=== PATIENT | female | born 1950 | race Caucasian/White ===

== ENCOUNTER 2017-07-15 11:08 | Inpatient (IN) ==
[2017-07-15] MEDS ORDERED: SODIUM CHLORIDE 0.9% 1,000 ML IV STA (11:25)
[2017-07-15] MEDS ORDERED: CLINDAMYCIN INJ 600 MG in PREMIX 1 EACH IV STA (11:25)
[2017-07-15] MEDS ORDERED: methylPREDNISolone SOD SUC 125 MG/2 ML VIAL IV STA (11:25)
[2017-07-15] MEDS ORDERED: LEVOFLOXACIN INJ 500 MG in PREMIX 1 EACH IV STA (11:25)
[2017-07-15] MEDS ORDERED: SUCCINYLCHOLINE 200 MG/10 ML VIAL IV ONE (11:26)
[2017-07-15] MEDS ORDERED: ETOMIDATE 20 MG/10 ML VIAL IV ONE ×2 (11:26→13:14)
[2017-07-15] MEDS ORDERED: MIDAZOLAM 2 MG/2 ML VIAL IV ONE (11:26)
--- NOTE | 2017-07-15 11:33 | Emergency Department Note ---
Arrival - Arrival Chief Complaint: Shortness of Breath ED Nursing Triage Note: pt to er 02 via ems coming from [facility], with c/o aspiration, pt was drinking grape juice and began to choke and turned blue around the lips. pt 02 sat on nonrebreather per ems was 50 % and then by bag ventilation per ems was 84%. Mode of Arrival: Stretcher Source: Patient, RN Notes Reviewed Time Seen by Provider: 07/15/17 11:25 - History of Present Illness HPI Narrative: Patient is a 67-year-old black female resident of [facility] who is brought to the emergency department by EMS in respiratory distress. The patient apparently aspirated grape juice at the longterm. Patient was noted to have a sat in the 50s upon arrival of EMS. Patient was not intubated in the field. The patient had pulse blood pressure and was being Ambu bagged upon arrival in the emergency department. History is obtained from EMS and was very limited as the patient was unable to provide any history. Allergies/Adverse Reactions: Allergies Allergy/AdvReac Type Severity Reaction Status Date / Time Penicillins Allergy Unknown/Unable Verified 07/15/17 11:16 to obtain tomato Allergy Unknown/Unable Verified 07/15/17 11:16 to obtain Home Medications: Home Medications Medication Instructions Recorded Confirmed Type Albuterol Sulfate [Albuterol Neb] 0.63 mg RESP TX DIRECTED 12/08/15 07/22/16 History Aspirin [Ecotrin] 81 mg PO DAILY 12/08/15 07/22/16 History Docusate Sodium Cap [Colace Cap] 100 mg PO DAILY 12/08/15 07/22/16 History Ferrous Sulfate 325 mg PO DAILY 12/08/15 07/22/16 History Insulin Glargine [Lantus] 40 unit SUBCUT DAILY 12/08/15 07/22/16 History Isosorbide Dinitrate 10 mg PO DAILY 12/08/15 07/22/16 History Metoprolol Tartrate 25 mg PO BID 12/08/15 07/22/16 History Montelukast Tab [Singulair Tab] 10 mg PO DAILY 12/08/15 07/22/16 History Olopatadine 0.1% Oph Soln [Patanol 1 drop BOTH EYES BID 12/08/15 07/22/16 History 0.1% Oph Soln] Omeprazole [Prilosec] 20 mg PO DAILY 12/08/15 07/22/16 History Furosemide Tab [Lasix Tab] 20 mg PO DAILY 12/11/15 07/24/16 History Insulin NPH Hum/Reg Insulin Hm 18 unit SUBCUT QAM 12/11/15 07/22/16 History [NovoLIN 70/30] Multivitamin [Multivitamins] 1 each PO DAILY 12/11/15 07/22/16 History traMADol TAB [Ultram] 50 mg PO BID 12/11/15 07/24/16 History Fenofibrate [Tricor] 145 mg PO DAILY 07/24/16 07/24/16 History Review of System - Review of System ROS unobtainable: due to endotracheal tube Medical,Surgical,& Family Hx - Medical History Cardio: History of: Hypertension Psychological: History of: Schizophrenia Neurology: History of: Cerebrovascular Accident Endocrine: History of: Diabetes Mellitus (IDDM), Diabetes Mellitus (NIDDM), Dyslipidemia Respiratory: History of: Asthma Genitourinary: History of: Bladder Problem (NEUROGENIC BLADDER) Gastrointestinal: History of: GERD, GI Problems (ADKINS'S ESOPHAGUS) - Surgical History Cardiac Surgeries: Patient Denies: Cardiac Catheterization - Social History Smoking Status: Smoker, status unknown Frequency of Alcohol Use: Unknown Type of Drug Use: Unknown Exam Vital Signs: Vital Signs Temperature 97.5 F L 07/15/17 11:08 Pulse Rate 111 H 07/15/17 11:08 Respiratory Rate 12 07/15/17 11:19 Blood Pressure 160/83 07/15/17 11:08 O2 Sat by Pulse Oximetry 84 L 07/15/17 11:08 GENERAL: This is a acutely ill-appearing morbidly obese black female in no apparent distress. VITAL SIGNS: Reviewed HEENT: Head is atraumatic and normocephalic. Pupils are equal round react to light. Extraocular movements are intact. Oropharynx is benign with moist mucous membranes. NECK: Neck is soft and supple without tenderness. There are no masses. There is no lymphadenopathy. LUNGS: Lungs are clear to auscultation. Chest rises symmetrically. There is no chest wall tenderness. CV: Heart is regular rate and rhythm without murmurs rubs or gallops. ABDOMEN: Abdomen is soft, nontender to palpation. There are no abdominal abnormal masses palpated. There is no organomegaly. Bowel sounds are present and active. SKIN: Skin is warm and dry. No rash. EXTREMITIES: Patient has full range of motion without tenderness. There is no pedal edema. NEUROLOGIC: Obtunded. Procedures - Intubation Time out performed: No sedative: Etomidate Mg Given: 20 paralytic: Succinylcholine Mg Given: 100 Laryngoscope: fiber optic video scope ET Tube Size: 7.5 ET Tube Uncuffed: No Tube Secured Depth (cm): 21 Tube Secured Location: teeth Tube Placement Confirmation: visualized tube passing through cords, equal breath sounds bilaterally, no breath sounds over epigastrium, confirmation detector color change Patient Tolerated Procedure: well Intubation Complications: difficult intubation Results - Labs Lab Results: I have reviewed the patients labs - EKG EKG results: interpreted by ERMD - Diagnostic Findings Procedure: Chest x-ray: image reviewed by me (Endotracheal tube in position above the maame. Increased pulmonary markings bilaterally right greater than left. This is consistent with aspiration pneumonia.) Disposition Clinical Impression: Aspiration pneumonia, Acute respiratory failure Case discussed with: patient's family Disposition: Still a Patient
[2017-07-15 11:37] LABS: Basophils % 0.4 % (0.0-0.8); Eosinophils # 0.3 10*3/uL (0.0-0.87); Eosinophils % 2.8 % (0.00-10.9); Hematocrit 36.5 VOL% (35.7-47.0); Hemoglobin 11.9 GM/DL (12.0-16.0); Immature Granulocytes % 0.7 %; Immature Granulocytes Absolute 0.07 #; Lymphocytes # 4.5 10*3/uL (1.4-4.0); Lymphocytes % 47.3 % (21.3-54.2); Mean Corpuscular HGB Conc 32.6 GM/DL (32-36); Mean Corpuscular Hemoglobin 27 PG (27-34); Mean Corpuscular Volume 82.6 FL (87-102); Mean Platelet Volume 11.2 FL (9.6-12.0); Monocytes # 0.9 10*3/uL (0.11-0.8); Neutrophils # 3.8 10*3/uL (1.4-7.4); Neutrophils % 39.8 % (38.7-73.9); Platelet Count 405 T/CUMM (130-400); Red Blood Count 4.42 MC/CUMM (3.8-5.5); Red Cell Distribution Width 15.9 % (9.3-17.3); White Blood Count 9.6 T/CUMM (4-12)
[2017-07-15] MEDS ORDERED: MORPHINE 2 MG/1 ML SYRINGE IV PRN (11:50)
[2017-07-15] MEDS ORDERED: ALBUTEROL 2.5 MG/3 ML NEB RESP TX PRN (11:50)
[2017-07-15] MEDS ORDERED: ONDANSETRON 4 MG/2 ML VIAL IV PRN (11:50)
--- NOTE | 2017-07-15 11:51 | XRay Report ---
History short of breath Comparison 09/20/2016 The heart is mildly enlarged. ET tube is been placed the tip at T4. Presumed NG tube tip overlies the mid chest. The there are moderate right greater than left reticulonodular and hazy bilateral pulmonary opacities Findings discussed with the ordering physician at 11:45 AM Impression: 1. Moderate right greater than left infiltrates versus asymmetric edema 2. NG tube tip overlying the midesophagus 3. ET tube tip at T4 PROCEDURE INTERPRETED AT [facility] DEPARTMENT OF RADIOLOGY Final Report Signed by: Dr. Ne Harrell
[2017-07-15 11:59] LABS: Eosinophils 3 % (0-10); Giant Platelets Few; Hypochromasia 1+; Lymphocytes 53 % (20-55); PT Patient Result 10.4 SECS; Partial Thromboplastin Time 24.3 SECS (0-40); Platelet Estimate Adequate; Segmented Neutrophils 38 % (50-85); Total Cells Counted 100
[2017-07-15] MEDS ORDERED: LEVOFLOXACIN INJ 100 ML IV ONE (12:00)
[2017-07-15] MEDS ORDERED: methylPREDNISolone SOD SUC 125 MG/2 ML VIAL ONE (12:00)
[2017-07-15] MEDS ORDERED: CLINDAMYCIN INJ 50 ML IV ONE (12:00)
[2017-07-15] MEDS ORDERED: FAMOTIDINE 20 MG/2 ML VIAL IV ONE (12:01)
[2017-07-15 12:07] LABS: Alanine Aminotransferase 47 U/L (13-56); Albumin 3.5 G/DL (3.4-5.0); Alkaline Phosphatase 91 U/L (45-117); Aspartate Amino Transferase 64 U/L (0-37); Bilirubin,Total < 0.39 MG/DL (0.2-1.0); Blood Urea Nitrogen 10 MG/DL (7-18); Glucose 316 MG/DL (74-106); Magnesium 2.1 MG/DL (1.8-2.4); Osmolality,Calculated 283.8 MOS/KG (273-304); Potassium 3.8 MMOL/L (3.5-5.1); Sodium 137 MMOL/L (136-145); Total Protein 7.9 G/DL (6.4-8.3); Troponin I Only 0.038 NG/ML (0.00-0.045)
[2017-07-15] MEDS: FAMOTIDINE 20 MG/2 ML VIAL IV SCH ×2 (12:17→23:54)
--- NOTE | 2017-07-15 12:21 | XRay Report ---
History is NG tube placement An NG tube in place with the tip in the body the stomach. Pulmonary opacities again demonstrated. Remainder of the exam is limited by technique Impression: NG tube tip in the body of the stomach PROCEDURE INTERPRETED AT [facility] DEPARTMENT OF RADIOLOGY Final Report Signed by: Dr. Ne Harrell
[2017-07-15] MEDS ORDERED: MIDAZOLAM 100 MG in SODIUM CHLORIDE 0.9% 80 ML IV SCH (12:30)
[2017-07-15 12:38] LABS: ABG Base Excess 1.1 MMOL/L (-2.5-2.5); ABG HCO3 26.7 MMOL/L (20-26); ABG Oxygen Saturation 96.9 % (95-100); ABG PCO2 46.2 MM HG (35-48); ABG PH 7.379 (7.35-7.45); ABG PO2 85.9 MM HG (80-95); ABG TCO2 28.1 MMOL/L (23-27)
[2017-07-15] MEDS ORDERED: VECURONIUM 10 MG VIAL IV STA (12:41)
[2017-07-15] MEDS ORDERED: MIDAZOLAM 2 MG/2 ML VIAL ONE (12:46)
[2017-07-15] MEDS ORDERED: VECURONIUM 10 MG VIAL IV ONE (13:14)
[2017-07-15 13:15] LABS: Apearance,Urine CLEAR (Clear); Bacteria,Urine Many /HPF (Few); Bilirubin,Urine Negative (Negative); Blood, Urine Negative (Negative); Glucose,Urine (UA) >=500 mg/dL (Negative); Hyaline Casts,Urine 4 /LPF (0-3); Ketones,Urine Negative (Negative); Mucus,Urine Occasional /LPF (Occasional); Nitrite,Urine Negative (Negative); Protein,Urine 30 MG/DL; RBC,Urine 1 /HPF (0-4); Urine Color Yellow (Yellow); Urine Specific Gravity 1.008 (1.001-1.035); Urine Urobilinogen < 2.0 EU/DL (0.2-1.0); WBC,Urine 2 /HPF (0-6)
[2017-07-15] MEDS ORDERED: SUCCINYLCHOLINE 200 MG/10 ML VIAL ONE (13:15)
[2017-07-15 13:27] LABS: Barbiturates Screen,Urine Negative (Negative); Benzodiazepines Screen,Urine Negative (Negative); Cannabinoid Screen,Urine Negative (Negative); Opiate Screen,Urine Negative (Negative); Phencyclidine Screen,Urine Negative (Negative)
[2017-07-15] MEDS: ALBUTEROL/IPRATROPIUM 3 ML NEB RESP TX SCH ×2 (13:27→19:37)
--- NOTE | 2017-07-15 13:30 | Hospitalist History & Physical ---
<Stanley Gipson - Last Filed: 07/15/17 13:24> Assessment and Plan (1) Acute respiratory failure Status: Acute Assessment and plan: The patient's chest x-ray is highly suggestive of aspiration pneumonia. This is likely the cause of the patient's acute respiratory failure. The patient remains intubated on mechanical ventilation. We will consult pulmonary to assist in ventilator management. In addition, we will continue empiric antibiotic coverage and recheck chest x-ray in a.m. Current Visit: Yes (2) Aspiration pneumonia Status: Acute Assessment and plan: Chest x-ray at the time of admission is highly suspicious for aspiration pneumonia. The family reported that the patient quite often "chokes" during meals due to" eating fast". Oral gastric tube has been placed to low intermittent suction. Pulmonary has been consulted to assist during the clinical encounter. We will await pulmonary's consultation for further direction. In the meantime, we will continue empiric antibiotic coverage, inhaled bronchodilators, and corticosteroids. Current Visit: Yes Qualifiers: Aspiration pneumonia type: unspecified Laterality: bilateral (3) Insulin dependent diabetes mellitus Status: Acute Assessment and plan: We will obtain hemoglobin A1c and start Accu-Cheks with sliding scale coverage. Current Visit: Yes History of Present Illness Chief complaint: Shortness of breath History of present illness: This is a chronically ill 59-year-old female that presented to the ED at [facility] via EMS from the [facility] this morning for the evaluation of shortness of breath. The patient has a long and complex medical history significant for insulin dependent diabetes mellitus , gastroesophageal reflux disease, Adkins's esophagitis, hypertension, schizophrenia, cerebrovascular accident, hypertension, asthma, dyslipidemia, neurogenic bladder. No surgical history was reported at the time of ED presentation. Apparently, the patient had been given some grape juice by the care home staff and stopped suddenly started to cough violently. The nursing staff noted that the patient became very cyanotic. They became alarmed and called for emergency assistance. The patient was placed on a nonrebreather mask by the EMS staff at the time of departure however, the patient's respiratory status continued to decline and bag mask ventilation was initiated. The patient was subsequently transferred to [facility] for continuation of care. The patient's respiratory status was less than favorable at the time of ED presentation. Oxygen saturations were noted at 84%. Due to the severity of the patient's respiratory status, the patient was electively intubated in the ED and placed on mechanical ventilation. During the intubation, the patient was noted to have a large amount of copious emesis noted and removed via suction. Oral-gastric tube was placed to low intermittent suction with a moderate amount of gastric-like content noted. Labs were obtained which were remarkable for hemoglobin 11.9, platelet count 4 5, creatinine 1.3, glucose 316 , AST 64, troponin 0.038, and BNP was noted at 18. Urinalysis was significant for urine urobilinogen greater than 2.0, urine RBCs 1, urine WBCs 2, urine bacteria many, hyaline casts 4, and the presence of occasional urine mucus noted. Chest x-ray was significant for moderate right greater than left infiltrates versus asymmetric edema, and mildly enlargement of the heart was noted. After brief discussion with both Dr. Castellano and Dr. De León, the patient will be admitted to the hospitalist service for continuation of care. The patient will be placed in the critical care setting for further evaluation. Due to the severity of the patient's current status, a pulmonology consultation has been requested. The patient's home medications have been reviewed and reconciled. The patient's family was present at the bedside. I spoke with the patient's family in great detail regarding the patient's current CODE STATUS. Her nephew , Pardeep Bruno who is her responsible constitution party, requests that the patient be made a DO NOT RESUSCITATE. Home Medications Medication Instructions Recorded Confirmed Type Aspirin [Ecotrin] 81 mg PO DAILY 12/08/15 07/15/17 History Docusate Sodium Cap [Colace Cap] 100 mg PO DAILY 12/08/15 07/15/17 History Insulin Glargine [Lantus] 40 unit SUBCUT DAILY 12/08/15 07/15/17 History Montelukast Tab [Singulair Tab] 10 mg PO DAILY 12/08/15 07/15/17 History Olopatadine 0.1% Oph Soln [Patanol 1 drop BOTH EYES BID 12/08/15 07/15/17 History 0.1% Oph Soln] Omeprazole [Prilosec] 20 mg PO DAILY 12/08/15 07/15/17 History RX: Ferrous Sulfate 325 mg PO DAILY 12/08/15 07/15/17 History RX: Isosorbide Dinitrate 10 mg PO DAILY 12/08/15 07/15/17 History RX: Metoprolol Tartrate 25 mg PO BID 12/08/15 07/15/17 History Furosemide Tab [Lasix Tab] 20 mg PO DAILY 12/11/15 07/15/17 History Insulin NPH Hum/Reg Insulin Hm 24 unit SUBCUT QAM 12/11/15 07/15/17 History [NovoLIN 70/30] Multivitamin [Multivitamins] 1 each PO DAILY 12/11/15 07/15/17 History traMADol TAB [Ultram] 50 mg PO BID 12/11/15 07/15/17 History Fenofibrate [Tricor] 145 mg PO DAILY 07/24/16 07/15/17 History Amantadine HCl [Amantadine] 100 mg PO BID 07/15/17 07/15/17 History Escitalopram [Lexapro] 20 mg PO DAILY 07/15/17 07/15/17 History Haloperidol [Haloperidol] 5 mg PO DAILY 07/15/17 07/15/17 History Haloperidol [Haloperidol] 10 mg PO BEDTIME 07/15/17 07/15/17 History OLANZapine [Olanzapine] 20 mg PO BEDTIME 07/15/17 07/15/17 History amLODIPine [Norvasc] 10 mg PO DAILY 07/15/17 07/15/17 History Allergies Allergy/AdvReac Type Severity Reaction Status Date / Time Penicillins Allergy Unknown/Unable Verified 07/15/17 11:16 to obtain tomato Allergy Unknown/Unable Verified 07/15/17 11:16 to obtain Medical,Surgical,& Family Hx - Medical History Cardio: History of: Hypertension Psychological: History of: Schizophrenia Neurology: History of: Cerebrovascular Accident Endocrine: History of: Diabetes Mellitus (IDDM), Diabetes Mellitus (NIDDM), Dyslipidemia Respiratory: History of: Asthma Genitourinary: History of: Bladder Problem (NEUROGENIC BLADDER) Gastrointestinal: History of: GERD, GI Problems (ADKINS'S ESOPHAGUS) - Surgical History Cardiac Surgeries: Patient Denies: Cardiac Catheterization - Social History Smoking Status: Smoker, status unknown Have you smoked in the last 12 months: No Time spent discussing smoking cessation with patient: 3 to 10 minutes Frequency of Alcohol Use: None Type of Drug Use: None, Unknown Marital Status: Single Lives With:: SNF Functional capacity: independent ambulation Exam - Constitutional Vitals: Period Temp Pulse Resp BP Sys/Romero Pulse Ox Last 24 Hr 97.5 F-97.5 F 90-111 12-14 146-160/81-83 84-100 General appearance: normal weight, no acute distress - Head Head exam: Present: normal inspection, normocephalic, atraumatic - Eye Eye exam: Present: EOMI. Absent: conjunctival injection Pupils: Present: BITA, normal accommodation - ENT ENT exam: Present: normal exam, normal external ear exam, normal oropharynx - Neck Neck exam: Present: normal inspection. Absent: lymphadenopathy, meningismus, tenderness, thyromegaly - Respiratory Respiratory exam: Present: clear to auscultation bilaterally. Absent: rales, rhonchi, stridor, wheezes - Cardiovascular Cardiovascular exam: Present: regular rate and rhythm. Absent: carotid bruit, diastolic murmur, gallop, JVD, rubs, systolic murmur - GI/Abdominal GI/Abdominal exam: Present: normal bowel sounds, distended. Absent: mass, tenderness, rebound, soft - Extremities Exam Extremities exam: Present: normal inspection. Absent: edema - Back Exam Back exam: Present: normal inspection - Neurological Exam Neurological exam: Present: other (sedated) - Psychiatric Psychiatric exam: Present: other (sedated) Results - Labs CBC & BMP: 07/15/17 11:13 07/15/17 11:32 <Cathy De León - Last Filed: 07/15/17 15:52> History of Present Illness History of present illness: Patient seen and examined independently of SIRIA Gipson, agree with history, assessment and plan as documented. Patient presents from care home s/p possible aspiration of juice. Intubated in the ED. CXR with bilateral infiltrates. BNP is not elevated. Will obtain echo. Will not start fluids. Did receive a bolus in the ED. No overt signs of infection, no leukocytosis or left sift or fevers. Will continue clindamycin for possible aspiration. It is noted that her lactic acid is slightly elevated Patient also admitted with PUJA, will monitor closely. She has a history of Schizophrenia and is no multiple psych meds, will need to restart these soon. Pulmonary assisting. Exam - Constitutional Vitals: Period Temp Pulse Resp BP Sys/Romero Pulse Ox Last 24 Hr 97.5 F-97.8 F 90-111 12-19 109-169/74-101 84-100 Results - Labs CBC & BMP: 07/15/17 11:13 07/15/17 11:32
[2017-07-15] MEDS ORDERED: DEXTROSE 50% 25 GM/50 ML SYRINGE IV PRN (14:00)
[2017-07-15] MEDS ORDERED: PROPOFOL 1,000 MG/100 ML BOTTLE IV ONE (14:00)
[2017-07-15] MEDS ORDERED: GLUCAGON 1 MG VIAL IM PRN (14:00)
[2017-07-15] MEDS: PROPOFOL 1,000 MG/100 ML BOTTLE IV SCH ×2 (14:13→20:45)
--- NOTE | 2017-07-15 15:33 | Pulmonology Consult Note ---
Assessment and Plan (1) Hypertension Status: Acute Assessment and plan: The patient has a history of hypertensive cardiovascular disease. Some of this could be pulmonary edema. Current Visit: Yes (2) Dementia Status: Acute Assessment and plan: The patient apparently gets confused quite easily. Current Visit: No (3) Aspiration pneumonia Status: Acute Assessment and plan: The patient apparently choked and vomited certainly could have some aspiration pneumonia. Current Visit: Yes Qualifiers: Aspiration pneumonia type: unspecified Laterality: bilateral (4) Acute respiratory failure Status: Acute Assessment and plan: Patient is on the ventilator and is reasonably stable at present. Current Visit: Yes (5) Insulin dependent diabetes mellitus Status: Acute Assessment and plan: Her glucoses will be monitored. Current Visit: Yes History of Present Illness Chief complaint: Ventilator management History of present illness: Ms. Bruno is a 67 year old black female is on the ventilator in the CCU. The patient has numerous medical problems including hypertension, diabetes, schizophrenia with previous CVA, chronic lung disease, among other problems and is in a prison. The patient apparently was drinking grape juice and suddenly choked. She started coughing a lot and became cyanotic. She basically had a respiratory arrest and is on the ventilator now. She apparently did have a large amount of emesis. She has diffuse infiltrates now on her x-ray. She has stable blood pressure on the ventilator. Home Medications Medication Instructions Recorded Confirmed Type Aspirin [Ecotrin] 81 mg PO DAILY 12/08/15 07/15/17 History Docusate Sodium Cap [Colace Cap] 100 mg PO DAILY 12/08/15 07/15/17 History Ferrous Sulfate 325 mg PO DAILY 12/08/15 07/15/17 History Insulin Glargine [Lantus] 40 unit SUBCUT DAILY 12/08/15 07/15/17 History Isosorbide Dinitrate 10 mg PO DAILY 12/08/15 07/15/17 History Metoprolol Tartrate 25 mg PO BID 12/08/15 07/15/17 History Montelukast Tab [Singulair Tab] 10 mg PO DAILY 12/08/15 07/15/17 History Olopatadine 0.1% Oph Soln [Patanol 1 drop BOTH EYES BID 12/08/15 07/15/17 History 0.1% Oph Soln] Omeprazole [Prilosec] 20 mg PO DAILY 12/08/15 07/15/17 History Furosemide Tab [Lasix Tab] 20 mg PO DAILY 12/11/15 07/15/17 History Insulin NPH Hum/Reg Insulin Hm 24 unit SUBCUT QAM 12/11/15 07/15/17 History [NovoLIN 70/30] Multivitamin [Multivitamins] 1 each PO DAILY 12/11/15 07/15/17 History traMADol TAB [Ultram] 50 mg PO BID 12/11/15 07/15/17 History Fenofibrate [Tricor] 145 mg PO DAILY 07/24/16 07/15/17 History Amantadine HCl [Amantadine] 100 mg PO BID 07/15/17 07/15/17 History Escitalopram [Lexapro] 20 mg PO DAILY 07/15/17 07/15/17 History Haloperidol [Haloperidol] 5 mg PO DAILY 07/15/17 07/15/17 History Haloperidol [Haloperidol] 10 mg PO BEDTIME 07/15/17 07/15/17 History OLANZapine [Olanzapine] 20 mg PO BEDTIME 07/15/17 07/15/17 History amLODIPine [Norvasc] 10 mg PO DAILY 07/15/17 07/15/17 History Allergies Allergy/AdvReac Type Severity Reaction Status Date / Time Penicillins Allergy Unknown/Unable Verified 07/15/17 11:16 to obtain tomato Allergy Unknown/Unable Verified 07/15/17 11:16 to obtain ROS unobtainable: due to endotracheal tube (She is unable to give any history.) Exam (Pulmonay) H&P - Constitutional Vitals: Period Temp Pulse Resp BP Sys/Romero Pulse Ox Last 24 Hr 97.5 F-97.5 F 90-111 12-14 146-160/81-83 84-100 General appearance: normal weight, other (Patient is sedated on the ventilator) - Head Head exam: Present: normal inspection, normocephalic - Eye Eye exam: Present: EOMI. Absent: scleral icterus Pupils: Present: BITA - ENT ENT exam: Present: other (ET tube is in good position) - Neck Neck exam: Absent: lymphadenopathy, thyromegaly - Respiratory Respiratory exam: Present: rales, rhonchi, other (The patient has fair breath sounds bilaterally with some crackles and rhonchi.) - Cardiovascular Cardiovascular exam: Present: regular rate and rhythm. Absent: gallop, systolic murmur - GI/Abdominal GI/Abdominal exam: Present: soft. Absent: distended, organomegaly, tenderness - Extremities Exam Extremities exam: Absent: calf tenderness, edema - Neurological Exam Neurological exam: Present: other (Patient is sedated on the ventilator.) - Psychiatric Psychiatric exam: Absent: anxious - Skin Skin exam: Present: warm, dry Medical,Surgical,& Family Hx - Medical History Cardio: History of: Hypertension Psychological: History of: Schizophrenia Neurology: History of: Cerebrovascular Accident Endocrine: History of: Diabetes Mellitus (IDDM), Diabetes Mellitus (NIDDM), Dyslipidemia Respiratory: History of: Asthma, Pneumonia Genitourinary: History of: Bladder Problem (NEUROGENIC BLADDER) Gastrointestinal: History of: GERD, GI Problems (ADKINS'S ESOPHAGUS) - Surgical History Cardiac Surgeries: Patient Denies: Cardiac Catheterization - Family History Family History: Reports;: Family Hematology (sickle cell) - Social History Smoking Status: Smoker, status unknown Frequency of Alcohol Use: None Type of Drug Use: None, Unknown Results - Labs CBC & BMP: 07/15/17 11:13 07/15/17 11:32 Labs: Her PO2 is 85 on 100%. PCO2 is 46 with a pH of 7.37 - Diagnostic Findings Procedure: Chest x-ray: image reviewed by me, report reviewed by me (Chest x- ray suggests pulmonary edema.)
[2017-07-15] MEDS: ALBUTEROL 2.5 MG/3 ML NEB RESP TX SCH ×4 (15:52→15:55)
[2017-07-15] MEDS: CLINDAMYCIN INJ 600 MG in PREMIX 1 EACH IV SCH (18:26)
[2017-07-15] MEDS: INSULIN REGULAR 100 UNIT/ML SUBCUT SCH ×2 (18:26→23:54)
[2017-07-15] MEDS: LACTATED RINGERS 1,000 ML IV SCH (23:50)
[2017-07-16] MEDS: ALBUTEROL/IPRATROPIUM 3 ML NEB RESP TX SCH ×4 (00:55→18:53)
[2017-07-16] MEDS: PROPOFOL 1,000 MG/100 ML BOTTLE IV SCH ×7 (01:50→23:03)
[2017-07-16] MEDS: CLINDAMYCIN INJ 600 MG in PREMIX 1 EACH IV SCH ×4 (01:58→18:02)
[2017-07-16 04:58] LABS: Basophils % 0.3 % (0.0-0.8); Hematocrit 32.2 VOL% (35.7-47.0); Hemoglobin 10.6 GM/DL (12.0-16.0); Immature Granulocytes % 0.6 %; Immature Granulocytes Absolute 0.08 #; Lymphocytes # 1.2 10*3/uL (1.4-4.0); Lymphocytes % 9.4 % (21.3-54.2); Mean Corpuscular HGB Conc 32.9 GM/DL (32-36); Mean Corpuscular Hemoglobin 26 PG (27-34); Mean Corpuscular Volume 79.9 FL (87-102); Mean Platelet Volume 10.4 FL (9.6-12.0); Monocytes # 0.6 10*3/uL (0.11-0.8); Monocytes % 4.3 % (1.7-12.7); Neutrophils # 11.2 10*3/uL (1.4-7.4); Neutrophils % 85.4 % (38.7-73.9); Platelet Count 252 T/CUMM (130-400); Red Blood Count 4.03 MC/CUMM (3.8-5.5); Red Cell Distribution Width 15.3 % (9.3-17.3); White Blood Count 13.1 T/CUMM (4-12)
[2017-07-16 05:19] LABS: Giant Platelets Few; Hypochromasia 1+; Platelet Estimate Adequate
[2017-07-16 05:26] LABS: Calcium 8.5 MG/DL (8.5-10.1); Osmolality,Calculated 283.4 MOS/KG (273-304)
[2017-07-16] MEDS: INSULIN REGULAR 100 UNIT/ML SUBCUT SCH ×4 (06:48→23:49)
--- NOTE | 2017-07-16 07:49 | Pulmonology Progress Note ---
Pulmonary - PN: Subj Interval history: Patient is a 67-year-old black lady that has dementia along with multiple other problems. She is in the alf. She apparently choked and was felt to have aspirated. She now is on the ventilator with diffuse infiltrates. She has been relatively stable on the ventilator but still is requiring a high FiO2. Her urine output has not been the greatest either. She is getting antibiotics and appears to be hemodynamically stable. Exam (Progress Note) - Constitutional Vitals: Period Temp Pulse Resp BP Sys/Romero Pulse Ox Last 24 Hr 96.7 F-99.5 F 82-111 12-23 109-169/62-101 84-100 Exam: General appearance: normal weight, other (Patient is sedated on the ventilator. She has stable vital signs.) - Head Head exam: Present: normal inspection, normocephalic - Eye Eye exam: Present: EOMI. Absent: scleral icterus Pupils: Present: BITA - ENT ENT exam: Present: other (ET tube is in good position) - Neck Neck exam: Absent: lymphadenopathy, thyromegaly - Respiratory Respiratory exam: Present: She has fair breath sounds bilaterally with some mild crackles bilaterally. - Cardiovascular Cardiovascular exam: Present: regular rate and rhythm. Absent: gallop, systolic murmur - GI/Abdominal GI/Abdominal exam: Present: soft. Absent: distended, organomegaly, tenderness - Extremities Exam Extremities exam: Absent: calf tenderness, edema - Neurological Exam Neurological exam: Present: other (Patient is sedated on the ventilator.) - Psychiatric Psychiatric exam: Absent: anxious - Skin Skin exam: Present: warm, dry Results - Labs CBC & BMP: 07/16/17 03:53 07/16/17 03:53 Labs: PO2 is 85 yesterday. - Diagnostic Findings Procedure: Chest x-ray: image reviewed by me, report reviewed by me (Chest x- ray shows diffuse infiltrates.) Assessment and Plan (1) Hypertension Status: Acute Assessment and plan: The patient has a history of hypertensive cardiovascular disease. Some of this could be pulmonary edema. She still has diffuse infiltrates. Current Visit: Yes (2) Dementia Status: Acute Assessment and plan: The patient apparently gets confused quite easily. Current Visit: No (3) Aspiration pneumonia Status: Acute Assessment and plan: The patient apparently choked and vomited and certainly could have some aspiration pneumonia. She still has a high FiO2. Current Visit: Yes Qualifiers: Aspiration pneumonia type: unspecified Laterality: bilateral (4) Acute respiratory failure Status: Acute Assessment and plan: Patient is on the ventilator and is reasonably stable at present. Current Visit: Yes (5) Insulin dependent diabetes mellitus Status: Acute Assessment and plan: Her glucoses will be monitored. Current Visit: Yes
--- NOTE | 2017-07-16 08:45 | XRay Report ---
XR chest 1V portable Indication: Ventilator patient Comparison: 15 July 2017 Findings: The heart and mediastinum are stable in size and configuration. The lines and tubes are unchanged in position. The pulmonary vascularity is normal increased with bilateral pulmonary density, appears slightly increased. No other lung infiltrates, effusions, pneumothorax or other abnormality is demonstrated. Impression: Slightly increasing bilateral pulmonary densities. No other acute findings. PROCEDURE INTERPRETED AT [facility] DEPARTMENT OF RADIOLOGY Final Report Signed by: Dr. Major Rasmussen
[2017-07-16] MEDS: LACTATED RINGERS 1,000 ML IV SCH ×2 (09:00→18:01)
[2017-07-16] MEDS ORDERED: MAGNESIUM SULF RIDER 4 GM in PREMIX 1 EACH IV PRN (09:56)
[2017-07-16] MEDS ORDERED: MAGNESIUM SULF RIDER 2 GM in PREMIX 1 EACH IV PRN (09:56)
[2017-07-16] MEDS: methylPREDNISolone SOD SUC 40 MG/1 ML VIAL IV SCH ×3 (09:58→23:54)
--- NOTE | 2017-07-16 10:00 | Hospitalist Progress Note ---
Assessment and Plan (1) Acute kidney injury Status: Acute Assessment and plan: Stable since yesterday But decreased urine output IV fluids Monitor closely Current Visit: Yes (2) Dementia Status: Acute Current Visit: No (3) Aspiration pneumonia Status: Acute Current Visit: Yes Qualifiers: Aspiration pneumonia type: unspecified Laterality: bilateral (4) Acute respiratory failure Status: Acute Assessment and plan: Pulmonary assisting CXR with bilateral pulmonary densities On zosyn for possible aspiration Started on fluids for low urine output, will have to monitor closely, she might actually require lasix at some point Current Visit: Yes (5) Insulin dependent diabetes mellitus Status: Acute Assessment and plan: Hemoglobin A1C 9.9, so uncontrolled SSI for now Will most likely require basal once tube feeds are started Current Visit: Yes (6) Hypertension Status: Acute Assessment and plan: Stable now, without medications Current Visit: Yes Hospitalist: Subjective Interval history: Overnight patient with decreased uop. Started on fluids. Intubated and sedated, will move to touch. Exam - Constitutional Vitals: Period Temp Pulse Resp BP Sys/Romero Pulse Ox Last 24 Hr 96.7 F-99.5 F 82-111 12-23 109-169/62-101 84-100 General appearance: over weight - Head Head exam: Present: normocephalic, atraumatic - Eye Eye exam: Present: EOMI Pupils: Present: BITA - ENT ENT exam: Present: normal exam - Neck Neck exam: Present: normal inspection - Respiratory Respiratory exam: Present: clear to auscultation bilaterally. Absent: rhonchi, wheezes - Cardiovascular Cardiovascular exam: Present: regular rate and rhythm - GI/Abdominal GI/Abdominal exam: Present: normal bowel sounds, soft. Absent: tenderness, rebound - Extremities Exam Extremities exam: Present: normal inspection - Back Exam Back exam: Present: normal inspection - Neurological Exam Neurological exam: Present: other (intubated and sedated) - Psychiatric Psychiatric exam: Absent: agitated, anxious - Skin Skin exam: Present: warm, intact Results - Labs CBC & BMP: 07/16/17 03:53 07/16/17 03:53
[2017-07-16] MEDS: FAMOTIDINE 20 MG/2 ML VIAL IV SCH ×2 (11:55→23:54)
--- NOTE | 2017-07-16 12:38 | ECHO Report ---
Cher Bruno Exam Date: 07/16/2017 07:30 Referring Physician: Technologist: bravo Edgar ARDMS, RVT Age: 67 Ht (in): 66 Wt (lb): 201 Gender: F Exam Location: [facility] Echo Indications: Acute respiratory failure, Aspiration pneumonia, IDDM BP: 129 / 62 HR: 95 Rhythm: Sinus Technical Quality: IMPRESSIONS Technically difficult study Normal chamber sizes Hyperdynamic LV systolic function with ejection fraction estimated be 70% 1+ tricuspid regurgitation with RVSP 30 mmHg plus RAP MEASUREMENTS (Male / Female) Normal Values 2D ECHO LV Diastolic Diameter PLAX 4.0 cm 4.2 - 5.9 / 3.9 - 5.3 cm LV Systolic Diameter PLAX 2.0 cm LV Fractional Shortening PLAX 49.5 % IVS Diastolic Thickness 0.9 cm 0.6 - 1.0 / 0.6 - 0.9 cm LVPW Diastolic Thickness 1.0 cm 0.6 - 1.0 / 0.6 - 0.9 cm RV Internal Dim ED PLAX 2.4 cm Aortic Root Diameter 2.7 cm LA Systolic Diameter LX 3.5 cm 3.0 - 4.0 / 2.7 - 3.8 cm DOPPLER TR Peak Velocity 309.0 cm/s TR Peak Gradient 38.2 mmHg FINDINGS Left Ventricle Normal left ventricular cavity size. Normal left ventricular wall thickness. Left ventricular ejection fraction is estimated at 65 %. Right Ventricle The right ventricle is normal in size and function. Right Atrium The right atrium is normal in size. Left Atrium The left atrium is normal in size. Mitral Valve Morphologically normal mitral valve. No mitral valve regurgitation. Aortic Valve Morphologically normal aortic valve without significant sclerosis or stenosis. There is no aortic regurgitation. Tricuspid Valve Morphologically normal tricuspid valve. Mild tricuspid valve regurgitation. Tricuspid regurgitation velocities suggest a PAP of 48 mmHg. Pulmonic Valve Pulmonic valve not well visualized. No pulmonary valve regurgitation. Pericardium Normal pericardium without effusion. Aorta Normal ascending aorta dimension. Daryn Montesinos (Electronically Signed) Final Date: 16 July 2017 12:37
--- NOTE | 2017-07-16 13:19 | XRay Report ---
XR KUB Clinical Information: Abdominal Pain hypoactive bowel sounds Comparison: None Findings: Bowel gas pattern is nonspecific and within normal limits. No abnormally dilated small bowel loops are identified to suggest obstruction. There is no free air identified. Scattered fecal material is noted throughout colon, which is otherwise nondilated. No abnormal focal soft tissue masses or calcific densities are identified in the abdomen or pelvis. Esophagogastric tube is partially imaged but suggested within the midline abdomen positioned with the tip near the distal stomach/pylorus Lung bases appear predominantly clear. There is no acute osseous abnormality. No suspicious osseous lesions are identified. Impression: No acute radiographic abnormality in the abdomen. PROCEDURE INTERPRETED AT [facility] DEPARTMENT OF RADIOLOGY Final Report Signed by: Sabino Magallon
[2017-07-16 15:47] LABS: Apearance,Urine CLEAR (Clear); Bilirubin,Urine Negative (Negative); Blood, Urine Small mg/dL (Negative); Glucose,Urine (UA) >=500 mg/dL (Negative); Ketones,Urine 5 mg/dL (Negative); Mucus,Urine Occasional /LPF (Occasional); Nitrite,Urine Negative (Negative); Protein,Urine 30 MG/DL; Squamous Epithelial Cell,Urine Occasional /HPF (0-10); Urine Color Yellow (Yellow); Urine Specific Gravity 1.024 (1.001-1.035); Urine Urobilinogen < 2.0 EU/DL (0.2-1.0); WBC,Urine 2 /HPF (0-6)
[2017-07-17] MEDS: CLINDAMYCIN INJ 600 MG in PREMIX 1 EACH IV SCH ×4 (00:08→18:26)
[2017-07-17] MEDS: ALBUTEROL/IPRATROPIUM 3 ML NEB RESP TX SCH ×4 (00:50→19:15)
[2017-07-17] MEDS: PROPOFOL 1,000 MG/100 ML BOTTLE IV SCH ×5 (02:56→19:56)
[2017-07-17] MEDS: LACTATED RINGERS 1,000 ML IV SCH (03:01)
[2017-07-17 04:04] LABS: ABG Base Excess 1.5 MMOL/L (-2.5-2.5); ABG HCO3 25.7 MMOL/L (20-26); ABG Oxygen Saturation 91.8 % (95-100); ABG PCO2 39.9 MM HG (35-48); ABG PH 7.422 (7.35-7.45); ABG PO2 61.1 MM HG (80-95); ABG TCO2 23.7 MMOL/L (23-27); Allen Test Positive; Pt O2 Delivery Device Ventilator
[2017-07-17 05:53] LABS: Basophils % 0.1 % (0.0-0.8); Hematocrit 29.2 VOL% (35.7-47.0); Hemoglobin 9.7 GM/DL (12.0-16.0); Immature Granulocytes % 1.7 %; Immature Granulocytes Absolute 0.24 #; Lymphocytes % 7.1 % (21.3-54.2); Mean Corpuscular HGB Conc 33.2 GM/DL (32-36); Mean Corpuscular Hemoglobin 26 PG (27-34); Mean Corpuscular Volume 79.1 FL (87-102); Mean Platelet Volume 9.4 FL (9.6-12.0); Monocytes # 0.6 10*3/uL (0.11-0.8); Monocytes % 4.4 % (1.7-12.7); Neutrophils # 12.3 10*3/uL (1.4-7.4); Neutrophils % 86.7 % (38.7-73.9); Platelet Count 228 T/CUMM (130-400); Red Blood Count 3.69 MC/CUMM (3.8-5.5); Red Cell Distribution Width 15.4 % (9.3-17.3); White Blood Count 14.2 T/CUMM (4-12)
[2017-07-17] MEDS: INSULIN REGULAR 100 UNIT/ML SUBCUT SCH ×4 (06:09→23:46)
[2017-07-17 06:17] LABS: Band Neutrophils 1 % (0-10); Lymphocytes 5 % (20-55); Segmented Neutrophils 90 % (50-85); Total Cells Counted 100
[2017-07-17 06:18] LABS: Giant Platelets Few; Hypochromasia 1+; Ovalocytes Slight; Platelet Estimate Adequate
[2017-07-17 06:34] LABS: Phosphorous 2.3 MG/DL (2.5-4.9); Prealbumin 11.9 MG/DL (20-40)
[2017-07-17 06:45] LABS: Magnesium 2.7 MG/DL (1.8-2.4); Osmolality,Calculated 293.4 MOS/KG (273-304); Potassium 4.5 MMOL/L (3.5-5.1)
--- NOTE | 2017-07-17 07:10 | XRay Report ---
XR chest 1V portable Indication: Ventilator patient Comparison: 16 July 2017 Findings: The heart and mediastinum are stable in size and configuration. Endotracheal tube and NG tube are similar in position when compared to previous exam. The pulmonary vascularity is increased with bilateral increased interstitial lung density similar to previous. No other lung infiltrates, effusions, pneumothorax or other abnormality is demonstrated. Impression: Findings suggest cardiac decompensation findings are similar to previous. PROCEDURE INTERPRETED AT [facility] DEPARTMENT OF RADIOLOGY Final Report Signed by: Dr. Major Rasmussen
--- NOTE | 2017-07-17 07:30 | Pulmonology Progress Note ---
Pulmonary - PN: Subj Interval history: Patient is a 67-year-old black lady that has dementia along with multiple other problems. She is in the sn[facility]. She apparently choked and was felt to have aspirated. She now is on the ventilator with diffuse infiltrates. She is still requiring a high FiO2. Her PO2 is only 61 on 80% O2. Her blood pressure has been stable. Her creatinine is down to 1.0. Her chest x-ray is gradually improving. She does have a staph on blood culture. Overall she is gradually improving. Exam (Progress Note) - Constitutional Vitals: Period Temp Pulse Resp BP Sys/Romero Pulse Ox Last 24 Hr 97.6 F-101.1 F 88-120 14-23 144-190/64-89 95-100 Exam: General appearance: normal weight, other (Patient is sedated on the ventilator. She has stable vital signs.) - Head Head exam: Present: normal inspection, normocephalic - Eye Eye exam: Present: EOMI. Absent: scleral icterus Pupils: Present: BITA - ENT ENT exam: Present: other (ET tube is in good position) - Neck Neck exam: Absent: lymphadenopathy, thyromegaly - Respiratory Respiratory exam: Present: She has fair breath sounds bilaterally with some mild crackles bilaterally. She does have fairly good air movement. - Cardiovascular Cardiovascular exam: Present: regular rate and rhythm. Absent: gallop, systolic murmur - GI/Abdominal GI/Abdominal exam: Present: soft. Absent: distended, organomegaly, tenderness - Extremities Exam Extremities exam: Absent: calf tenderness, edema - Neurological Exam Neurological exam: Present: other (Patient is sedated on the ventilator.) - Psychiatric Psychiatric exam: Absent: anxious - Skin Skin exam: Present: warm, dry Results - Labs CBC & BMP: 07/17/17 05:41 07/17/17 05:41 Labs: PO2 is 61 with a PCO2 of 39 pH is 7.42 - Diagnostic Findings Procedure: Chest x-ray: image reviewed by me, report reviewed by me (Chest x- ray still shows bilateral infiltrates.) Assessment and Plan (1) Hypertension Status: Acute Assessment and plan: The patient has a history of hypertensive cardiovascular disease. Some of this could be pulmonary edema. She still has diffuse infiltrates. Will try 1 dose of Lasix today. Current Visit: Yes (2) Dementia Status: Acute Assessment and plan: The patient apparently gets confused quite easily. She is stable on the ventilator. Current Visit: No (3) Aspiration pneumonia Status: Acute Assessment and plan: The patient apparently choked and vomited and certainly could have some aspiration pneumonia. She still has a high FiO2. Will plan a bronchoscope in the morning and clear her airways. Current Visit: Yes Qualifiers: Aspiration pneumonia type: unspecified Laterality: bilateral (4) Acute respiratory failure Status: Acute Assessment and plan: Patient is on the ventilator and is reasonably stable at present. She still is requiring FiO2. We will continue with antibiotics and respiratory therapy. Current Visit: Yes (5) Insulin dependent diabetes mellitus Status: Acute Assessment and plan: Her glucoses will be monitored. Her glucose has been over 300. Current Visit: Yes
[2017-07-17] MEDS ORDERED: FUROSEMIDE 40 MG/4 ML VIAL IV ONE (07:33)
[2017-07-17] MEDS: methylPREDNISolone SOD SUC 40 MG/1 ML VIAL IV SCH ×2 (08:02→17:26)
--- NOTE | 2017-07-17 09:35 | Hospitalist Progress Note ---
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 Her vital signs overnight demonstrated temperature maximum of 101.1 with moderate leukocytosis. She continues to require high flow oxygen for maintenance of adequate PO2 level. Her echocardiogram performed this admission demonstrates excellent LV systolic performance and normal right ventricular systolic pressure. A previous CT scan of the head done in August 2016 demonstrates marked atrophy with small vessel disease as an etiology for her dementia. Exam - Constitutional Vitals: Period Temp Pulse Resp BP Sys/Romero Pulse Ox Last 24 Hr 97.6 F-101.1 F 90-120 14-23 144-190/64-89 95-100 General appearance: over weight - Respiratory Respiratory exam: Present: clear to auscultation bilaterally. Absent: rales, rhonchi, wheezes - Cardiovascular Cardiovascular exam: Present: regular rate and rhythm - GI/Abdominal GI/Abdominal exam: Present: normal bowel sounds - Extremities Exam Extremities exam: Absent: edema - Neurological Exam Neurological exam: Absent: alert Results - Labs CBC & BMP: 07/17/17 05:41 07/17/17 05:41 Labs: PH 7.42 PCO2 40 PO2 61 PO2 FiO2 76 Phosphorus 2.3 Magnesium 2.7 - Diagnostic Findings Procedure: Chest x-ray: image reviewed by me (Bilateral symmetric alveolar changes)
[2017-07-17] MEDS: FAMOTIDINE 20 MG/2 ML VIAL IV SCH (11:45)
[2017-07-17] MEDS: INSULIN NPH 100 UNIT/ML SUBCUT SCH (17:26)
[2017-07-18] MEDS: FAMOTIDINE 20 MG/2 ML VIAL IV SCH ×3 (00:07→23:01)
[2017-07-18] MEDS: methylPREDNISolone SOD SUC 40 MG/1 ML VIAL IV SCH ×3 (00:08→17:03)
[2017-07-18] MEDS: CLINDAMYCIN INJ 600 MG in PREMIX 1 EACH IV SCH ×4 (00:08→18:29)
[2017-07-18] MEDS: PROPOFOL 1,000 MG/100 ML BOTTLE IV SCH ×8 (00:20→23:15)
[2017-07-18] MEDS: ALBUTEROL/IPRATROPIUM 3 ML NEB RESP TX SCH ×4 (01:20→19:59)
[2017-07-18 03:13] LABS: Allen Test Positive; Pt O2 Delivery Device Ventilator
[2017-07-18 03:15] LABS: ABG Base Excess 4.1 MMOL/L (-2.5-2.5); ABG HCO3 28.1 MMOL/L (20-26); ABG Oxygen Saturation 97.8 % (95-100); ABG PCO2 42.9 MM HG (35-48); ABG PH 7.434 (7.35-7.45); ABG PO2 99.9 MM HG (80-95); ABG TCO2 26.1 MMOL/L (23-27)
[2017-07-18 03:47] LABS: Calcium 8.9 MG/DL (8.5-10.1); Osmolality,Calculated 304.7 MOS/KG (273-304); Potassium 4.3 MMOL/L (3.5-5.1)
[2017-07-18] MEDS: LACTATED RINGERS 1,000 ML IV SCH (06:45)
[2017-07-18] MEDS: INSULIN REGULAR 100 UNIT/ML SUBCUT SCH ×3 (06:46→17:40)
[2017-07-18] MEDS: INSULIN NPH 100 UNIT/ML SUBCUT SCH ×2 (06:47→17:40)
--- NOTE | 2017-07-18 07:04 | XRay Report ---
Exam: XR chest 1V portable Date: 07/18/2017 4:00 AM Indication: Aspiration pneumonia follow-up ventilator Comparison: 07/17/2017 Technical: AP Findings: Endotracheal tube nasogastric tube external cardiac leads are demonstrated. Patchy infiltrates are present in the lung duff bilaterally. No pneumothorax. Lateral marginal osteophytes are noted. Mediastinum is intact. Impression: 1. Stable appearance of life support tubing 2. Bilateral interstitial alveolar infiltrates PROCEDURE INTERPRETED AT [facility] DEPARTMENT OF RADIOLOGY Final Report Signed by: Dr. Burak Sheffield
--- NOTE | 2017-07-18 07:52 | Pulmonology Progress Note ---
Pulmonary - PN: Subj Interval history: Patient is a 67-year-old black lady that has dementia along with multiple other problems. [facility] She apparently choked and was felt to have aspirated. She now is on the ventilator with diffuse infiltrates. She did diurese a little yesterday and is been reasonably stable. Her oxygenation is a little better today. Her chest x-ray seems to be improving a little. Will proceed with the bronchoscope and check her airways. We will continue weaning. Exam (Progress Note) - Constitutional Vitals: Period Temp Pulse Resp BP Sys/Romero Pulse Ox Last 24 Hr 98.3 F-99.6 F 72-117 14-22 153-188/61-95 96-100 Exam: General appearance: normal weight, other (Patient is sedated on the ventilator. She has stable vital signs.) - Head Head exam: Present: normal inspection, normocephalic - Eye Eye exam: Present: EOMI. Absent: scleral icterus Pupils: Present: BITA - ENT ENT exam: Present: other (ET tube is in good position) - Neck Neck exam: Absent: lymphadenopathy, thyromegaly - Respiratory Respiratory exam: Present: She has fair breath sounds bilaterally is moving air fairly well with some mild crackles bilaterally. - Cardiovascular Cardiovascular exam: Present: regular rate and rhythm. Absent: gallop, systolic murmur - GI/Abdominal GI/Abdominal exam: Present: soft. Absent: distended, organomegaly, tenderness - Extremities Exam Extremities exam: Absent: calf tenderness, edema - Neurological Exam Neurological exam: Present: other (Patient is sedated on the ventilator.) - Psychiatric Psychiatric exam: Absent: anxious - Skin Skin exam: Present: warm, dry Results - Labs CBC & BMP: 07/17/17 05:41 07/18/17 03:08 Labs: PO2 is 99 with a PCO2 of 42 and a pH of 7.43 - Diagnostic Findings Procedure: Chest x-ray: image reviewed by me, report reviewed by me (Chest x- ray still shows bilateral infiltrates that are improving a little.) Assessment and Plan (1) Hypertension Status: Acute Assessment and plan: The patient has a history of hypertensive cardiovascular disease. Some of this could be pulmonary edema. She still has diffuse infiltrates. She did diurese fairly well yesterday. Current Visit: Yes (2) Dementia Status: Chronic Assessment and plan: The patient apparently gets confused quite easily. She is stable on the ventilator. Current Visit: No (3) Aspiration pneumonia Status: Acute Assessment and plan: The patient apparently choked and vomited and certainly could have some aspiration pneumonia. She still has a high FiO2. Her PO2 is improving a little and will go ahead with a therapeutic bronchoscopy. We will continue to try to wean. Current Visit: Yes Qualifiers: Aspiration pneumonia type: unspecified Laterality: bilateral (4) Acute respiratory failure Status: Acute Assessment and plan: Patient is on the ventilator and is reasonably stable at present. She still is requiring FiO2. We will continue with antibiotics and respiratory therapy. Will start some steroids and proceed with a bronchoscopy. Current Visit: Yes (5) Insulin dependent diabetes mellitus Status: Acute Assessment and plan: Her glucoses will be monitored. Her glucose has been over 300. Current Visit: Yes
--- NOTE | 2017-07-18 07:55 | Operative Note ---
Date of procedure: 07/18/17 Pre-op diagnosis: Respiratory failure Post-op diagnosis: other (Bronchitis with mild secretions) Procedure: The patient is on the ventilator in the ICU with bilateral infiltrates. A bronchoscopy will be done to assess airways and clear airways. Procedure: The fiberoptic bronchoscope was passed through the ET tube into the airways. The bronchopulmonary segments were identified and specimens obtained. Findings: The ET tube is at the right main and was repositioned in the distal trachea and pulled back a few centimeters. The main bronchi are open but are mildly inflamed. The right upper lobe, right middle lobe, right lower lobe are all open. The left upper lobe, lingula, and left lower lobe are open. There are some blood-tinged frothy secretions that were washed and cleared. Washings were sent for culture. Once the airways were clear the procedure was stopped. She tolerated the procedure well without problems Impression: Bilateral infiltrates with bronchitis that is consistent with aspiration. Plan: We will continue weaning from the ventilator. Anesthesia: conscious sedation Surgeon / Physician: Marin Alvarado Estimated blood loss: minimal Specimens: other (Washings were sent for culture) Condition: stable Disposition: ICU Results - Labs CBC & BMP: 07/17/17 05:41 07/18/17 03:08 Discharge Plan - Discharge Medications No Action Omeprazole [Prilosec] 20 mg PO DAILY Olopatadine 0.1% Oph Soln [Patanol 0.1% Oph Soln] 1 drop BOTH EYES BID Metoprolol Tartrate 25 mg PO BID Insulin Glargine [Lantus] 40 unit SUBCUT DAILY Isosorbide Dinitrate 10 mg PO DAILY Docusate Sodium Cap [Colace Cap] 100 mg PO DAILY Ferrous Sulfate 325 mg PO DAILY Aspirin [Ecotrin] 81 mg PO DAILY Montelukast Tab [Singulair Tab] 10 mg PO DAILY Insulin NPH Hum/Reg Insulin Hm [NovoLIN 70/30] 24 unit SUBCUT QAM Furosemide Tab [Lasix Tab] 20 mg PO DAILY traMADol TAB [Ultram] 50 mg PO BID Multivitamin [Multivitamins] 1 each PO DAILY Fenofibrate [Tricor] 145 mg PO DAILY amLODIPine [Norvasc] 10 mg PO DAILY Escitalopram [Lexapro] 20 mg PO DAILY Haloperidol [Haloperidol] 10 mg PO BEDTIME OLANZapine [Olanzapine] 20 mg PO BEDTIME Amantadine HCl [Amantadine] 100 mg PO BID Haloperidol [Haloperidol] 5 mg PO DAILY - Follow Up or Referral - Forms/Instructions
[2017-07-18] MEDS ORDERED: FUROSEMIDE 40 MG/4 ML VIAL IV ONE (07:58)
--- NOTE | 2017-07-18 10:18 | Hospitalist Progress Note ---
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 Therapeutic bronchoscopy completed 18 July Current Visit: Yes Qualifiers: Aspiration pneumonia type: unspecified Laterality: bilateral Hospitalist: Subjective Interval history: 67-year-old female residential resident with dementia with a CT scan done in August 2016 demonstrating marked atrophy and small vessel disease was admitted with probable aspiration requiring intubation and mechanical ventilation. Earlier today she underwent bronchoscopy. She has been afebrile since the late evening of 16 July. Her capillary blood glucose continues elevated with coverage initiated. Her PaO2 FiO2 ratio on follow-up blood gas has improved but remains poor. Exam - Constitutional Vitals: Period Temp Pulse Resp BP Sys/Romero Pulse Ox Last 24 Hr 98.3 F-99.6 F 72-128 14-22 154-209/61-95 94-100 General appearance: over weight - Respiratory Respiratory exam: Absent: rales, rhonchi, wheezes - Cardiovascular Cardiovascular exam: Present: regular rate and rhythm - GI/Abdominal GI/Abdominal exam: Present: normal bowel sounds - Extremities Exam Extremities exam: Absent: edema - Neurological Exam Neurological exam: Absent: alert Results - Labs CBC & BMP: 07/17/17 05:41 07/18/17 03:08 Labs: PH 7.43 PCO2 43 PO2 100 PO2/FiO2 125 - Diagnostic Findings Procedure: Chest x-ray: image reviewed by me (Stable bilateral infiltrates.)
[2017-07-18] MEDS ORDERED: METOPROLOL TARTRATE 5 MG/5 ML VIAL IV ONE (18:14)
[2017-07-18] MEDS: METOPROLOL TARTRATE 5 MG/5 ML VIAL IV PRN (18:21)
[2017-07-18] MEDS: AMANTADINE 100 MG CAPSULE PO SCH (20:47)
[2017-07-18] MEDS: METOPROLOL TARTRATE 25 MG TABLET PO SCH (20:47)
[2017-07-18] MEDS: OLOPATADINE 0.1% OPH SOLN 5 ML BOTTLE BOTH EYES SCH (22:57)
[2017-07-18] MEDS: hydrALAZINE 20 MG/1 ML VIAL IV PRN (22:58)
[2017-07-19] MEDS: methylPREDNISolone SOD SUC 40 MG/1 ML VIAL IV SCH ×3 (00:21→16:10)
[2017-07-19] MEDS: CLINDAMYCIN INJ 600 MG in PREMIX 1 EACH IV SCH ×4 (00:22→20:06)
[2017-07-19] MEDS: INSULIN REGULAR 100 UNIT/ML SUBCUT SCH ×5 (00:22→17:25)
[2017-07-19] MEDS: METOPROLOL TARTRATE 5 MG/5 ML VIAL IV PRN (00:32)
[2017-07-19] MEDS: ALBUTEROL/IPRATROPIUM 3 ML NEB RESP TX SCH ×4 (01:36→17:55)
[2017-07-19] MEDS: PROPOFOL 1,000 MG/100 ML BOTTLE IV SCH ×6 (03:00→21:13)
[2017-07-19 04:47] LABS: ABG Base Excess 7.1 MMOL/L (-2.5-2.5); ABG HCO3 30.7 MMOL/L (20-26); ABG Oxygen Saturation 98.7 % (95-100); ABG PCO2 39.8 MM HG (35-48); ABG PH 7.505 (7.35-7.45); ABG PO2 133.7 MM HG (80-95); ABG TCO2 31.9 MMOL/L (23-27); Allen Test Positive; Pt O2 Delivery Device Ventilator
[2017-07-19] MEDS: hydrALAZINE 20 MG/1 ML VIAL IV PRN ×2 (06:00→12:48)
[2017-07-19 06:01] LABS: Basophils # 0.1 10*3/uL (0.0-0.2); Basophils % 0.5 % (0.0-0.8); Hematocrit 34.2 VOL% (35.7-47.0); Hemoglobin 11.2 GM/DL (12.0-16.0); Immature Granulocytes % 5.2 %; Immature Granulocytes Absolute 0.96 #; Lymphocytes # 1.8 10*3/uL (1.4-4.0); Lymphocytes % 9.6 % (21.3-54.2); Mean Corpuscular HGB Conc 32.7 GM/DL (32-36); Mean Corpuscular Hemoglobin 26 PG (27-34); Mean Corpuscular Volume 79.5 FL (87-102); Mean Platelet Volume 11.3 FL (9.6-12.0); Monocytes # 1.3 10*3/uL (0.11-0.8); Monocytes % 7.2 % (1.7-12.7); Neutrophils # 14.3 10*3/uL (1.4-7.4); Neutrophils % 77.5 % (38.7-73.9); Platelet Count 247 T/CUMM (130-400); Red Cell Distribution Width 15.7 % (9.3-17.3); White Blood Count 18.5 T/CUMM (4-12)
[2017-07-19] MEDS: INSULIN NPH 100 UNIT/ML SUBCUT SCH ×2 (06:34→17:25)
[2017-07-19 06:51] LABS: Albumin 2.6 G/DL (3.4-5.0); Bilirubin,Total 0.8 MG/DL (0.2-1.0); Calcium 9.5 MG/DL (8.5-10.1); Osmolality,Calculated 309.6 MOS/KG (273-304); Potassium 4.5 MMOL/L (3.5-5.1); Total Protein 6.6 G/DL (6.4-8.3)
[2017-07-19 07:32] LABS: Band Neutrophils 3 % (0-10); Giant Platelets Few; Hypochromasia 1+; Lymphocytes 6 % (20-55); Nucleated Red Blood Cells 2 (0-5); Ovalocytes Slight; Platelet Estimate Adequate; Segmented Neutrophils 86 % (50-85); Total Cells Counted 100
[2017-07-19] MEDS: amLODIPine 10 MG TABLET PO SCH (08:57)
[2017-07-19] MEDS: AMANTADINE 100 MG CAPSULE PO SCH ×2 (08:57→20:06)
[2017-07-19] MEDS: ISOSORBIDE DINITRATE 10 MG TABLET PO SCH (08:57)
[2017-07-19] MEDS: FENOFIBRATE 145 MG TABLET PO SCH (08:58)
[2017-07-19] MEDS: FERROUS SULFATE 325 MG TABLET PO SCH (08:58)
[2017-07-19] MEDS: ASPIRIN EC 81 MG TABLET PO SCH (08:58)
[2017-07-19] MEDS: MONTELUKAST 10 MG TABLET PO SCH (08:58)
[2017-07-19] MEDS: METOPROLOL TARTRATE 25 MG TABLET PO SCH ×2 (08:58→20:06)
[2017-07-19] MEDS ORDERED: FUROSEMIDE 20 MG TABLET PO SCH (09:00)
[2017-07-19] MEDS: OLOPATADINE 0.1% OPH SOLN 5 ML BOTTLE BOTH EYES SCH ×2 (09:10→20:06)
--- NOTE | 2017-07-19 09:13 | Hospitalist Progress Note ---
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 Therapeutic bronchoscopy completed 18 July Current Visit: Yes Qualifiers: Aspiration pneumonia type: unspecified Laterality: bilateral Hospitalist: Subjective Interval history: 67-year-old female dementia correction resident with CT scan in August 2016 demonstrating marked cerebral atrophy and small vessel disease was admitted with probable aspiration requiring intubation and mechanical ventilation. She underwent bronchoscopy on 18 July on the she had a significant elevation of her temperature no subsequent fevers been encountered. She remains on mechanical ventilation. There is been gradual improvement in her PO2 /FiO2 ratio. She has been started on intermediate acting insulin to address persistent hyperglycemia. Exam - Constitutional Vitals: Period Temp Pulse Resp BP Sys/Romero Pulse Ox Last 24 Hr 97.3 F-99.2 F 83-120 14-19 132-193/61-97 97-100 General appearance: over weight - Respiratory Respiratory exam: Present: clear to auscultation bilaterally. Absent: rales, rhonchi, wheezes - Cardiovascular Cardiovascular exam: Present: regular rate and rhythm - GI/Abdominal GI/Abdominal exam: Present: normal bowel sounds. Absent: distended - Extremities Exam Extremities exam: Absent: edema - Neurological Exam Neurological exam: Absent: alert Results - Labs CBC & BMP: 07/19/17 04:02 07/19/17 04:02 Labs: PH 7.50 PCO2 40 PO2 134 PO2/FiO2 191 - Diagnostic Findings Procedure: Chest x-ray: image reviewed by me (Persisting bilateral infiltrates.)
--- NOTE | 2017-07-19 09:28 | Pulmonology Progress Note ---
Pulmonary - PN: Subj Interval history: Patient is a 67-year-old black lady that has dementia along with multiple other problems. She is in the care home. She apparently choked and was felt to have aspirated. She now is on the ventilator with diffuse infiltrates. She has been diuresing quite nicely. Her oxygenation is a little better and her chest x-ray is slowly improving. Overall she is stable. Exam (Progress Note) - Constitutional Vitals: Period Temp Pulse Resp BP Sys/Romero Pulse Ox Last 24 Hr 97.3 F-99.2 F 83-120 14-19 132-193/61-97 97-100 Exam: General appearance: normal weight, other (Patient is sedated on the ventilator. She has stable vital signs. Her weight is down and she is diuresing well.) - Head Head exam: Present: normal inspection, normocephalic - Eye Eye exam: Present: EOMI. Absent: scleral icterus Pupils: Present: BITA - ENT ENT exam: Present: other (ET tube is in good position) - Neck Neck exam: Absent: lymphadenopathy, thyromegaly - Respiratory Respiratory exam: Present: She has fair breath sounds bilaterally is moving air fairly well with some mild crackles bilaterally. She does not have any wheezing at present. - Cardiovascular Cardiovascular exam: Present: regular rate and rhythm. Absent: gallop, systolic murmur - GI/Abdominal GI/Abdominal exam: Present: soft. Absent: distended, organomegaly, tenderness - Extremities Exam Extremities exam: Absent: calf tenderness, edema - Neurological Exam Neurological exam: Present: other (Patient is sedated on the ventilator.) - Psychiatric Psychiatric exam: Absent: anxious - Skin Skin exam: Present: warm, dry Results - Labs CBC & BMP: 07/19/17 04:02 07/19/17 04:02 Labs: Her PO2 is 133 with a PCO2 of 39 and a pH of 7.5 - Diagnostic Findings Procedure: Chest x-ray: image reviewed by me, report reviewed by me (Chest x- ray still shows bilateral infiltrates but does seem to be getting a little better.) Assessment and Plan (1) Hypertension Status: Acute Assessment and plan: The patient has a history of hypertensive cardiovascular disease. Some of this could be pulmonary edema. She still has diffuse infiltrates. She did diurese fairly well yesterday. Overall she is improving. Current Visit: Yes (2) Dementia Status: Chronic Assessment and plan: The patient apparently gets confused quite easily. She is stable on the ventilator. Current Visit: No (3) Aspiration pneumonia Status: Acute Assessment and plan: The patient apparently choked and vomited and certainly could have some aspiration pneumonia. She still has a high FiO2. Her PCO2 is getting better and so far nothing is growing on her bronchial washings. Her chest x-ray is slowly improving. Current Visit: Yes Qualifiers: Aspiration pneumonia type: unspecified Laterality: bilateral (4) Acute respiratory failure Status: Acute Assessment and plan: Patient is on the ventilator and is reasonably stable at present. She still is requiring FiO2. She is diuresing better and her oxygenation has improved. We will continue to adjust the ventilator. Current Visit: Yes (5) Insulin dependent diabetes mellitus Status: Acute Assessment and plan: Her glucoses will be monitored. Her glucose has been over 300. Current Visit: Yes
[2017-07-19] MEDS: FAMOTIDINE 20 MG/2 ML VIAL IV SCH (10:31)
[2017-07-19] MEDS: FUROSEMIDE 40 MG/4 ML VIAL IV SCH (10:31)
[2017-07-19] MEDS: LACTATED RINGERS 1,000 ML IV SCH ×2 (11:36→17:31)
--- NOTE | 2017-07-19 11:40 | XRay Report ---
History is ventilator management Comparison 07/18/2017 Mediastinal contours unchanged. ET tube tip remains at T5 There remain diffuse and bilateral hazy and reticular pulmonary opacities without significant change attending for rotation. Impression: No significant change in diffuse infiltrates versus edema PROCEDURE INTERPRETED AT [facility] DEPARTMENT OF RADIOLOGY Final Report Signed by: Dr. Ne Harrell
[2017-07-19] MEDS ORDERED: DEXTROSE 50% 25 GM/50 ML SYRINGE IV PRN (21:58)
[2017-07-20] MEDS: methylPREDNISolone SOD SUC 40 MG/1 ML VIAL IV SCH ×4 (00:13→23:56)
[2017-07-20] MEDS: CLINDAMYCIN INJ 600 MG in PREMIX 1 EACH IV SCH ×4 (00:13→20:01)
[2017-07-20] MEDS: INSULIN REGULAR 100 UNIT/ML SUBCUT SCH ×5 (00:14→23:59)
[2017-07-20] MEDS: FAMOTIDINE 20 MG/2 ML VIAL IV SCH ×3 (00:14→23:11)
[2017-07-20] MEDS: ALBUTEROL/IPRATROPIUM 3 ML NEB RESP TX SCH ×4 (01:53→20:27)
[2017-07-20] MEDS: PROPOFOL 1,000 MG/100 ML BOTTLE IV SCH ×7 (03:30→23:19)
[2017-07-20 04:30] LABS: Basophils # 0.1 10*3/uL (0.0-0.2); Basophils % 0.3 % (0.0-0.8); Eosinophils % 0.1 % (0.00-10.9); Hematocrit 34.5 VOL% (35.7-47.0); Hemoglobin 11.2 GM/DL (12.0-16.0); Immature Granulocytes % 7.9 %; Immature Granulocytes Absolute 1.17 #; Lymphocytes # 1.9 10*3/uL (1.4-4.0); Mean Corpuscular HGB Conc 32.5 GM/DL (32-36); Mean Corpuscular Hemoglobin 26 PG (27-34); Mean Corpuscular Volume 78.9 FL (87-102); Mean Platelet Volume 10.2 FL (9.6-12.0); Monocytes # 1.4 10*3/uL (0.11-0.8); Monocytes % 9.1 % (1.7-12.7); NRBC # 0.02 10*3/uL; Neutrophils # 10.3 10*3/uL (1.4-7.4); Neutrophils % 69.6 % (38.7-73.9); Platelet Count 263 T/CUMM (130-400); Red Blood Count 4.37 MC/CUMM (3.8-5.5); Red Cell Distribution Width 15.6 % (9.3-17.3); White Blood Count 14.8 T/CUMM (4-12)
[2017-07-20] MEDS: LACTATED RINGERS 1,000 ML IV SCH (04:30)
[2017-07-20] MEDS: hydrALAZINE 20 MG/1 ML VIAL IV PRN (04:36)
[2017-07-20 05:02] LABS: Calcium 9.4 MG/DL (8.5-10.1); Osmolality,Calculated 311.6 MOS/KG (273-304); Potassium 3.8 MMOL/L (3.5-5.1)
[2017-07-20 06:56] LABS: Lymphocytes 12 % (20-55); Segmented Neutrophils 75 % (50-85); Total Cells Counted 100
[2017-07-20 06:57] LABS: Giant Platelets Few; Hypochromasia 1+; Platelet Estimate Adequate; Target Cells Few
[2017-07-20] MEDS: INSULIN NPH 100 UNIT/ML SUBCUT SCH ×2 (07:03→17:07)
--- NOTE | 2017-07-20 08:12 | Pulmonology Progress Note ---
Pulmonary - PN: Subj Interval history: Patient is a 67-year-old black lady that has dementia along with multiple other problems. She is in the snf. She apparently choked and was felt to have aspirated. She now is on the ventilator with diffuse infiltrates. She has been diuresing quite nicely. Chest x-ray is improving nicely and her lungs sound better. Her urine output has been good. Her O2 saturations have improved. Exam (Progress Note) - Constitutional Vitals: Period Temp Pulse Resp BP Sys/Romero Pulse Ox Last 24 Hr 97.7 F-99.0 F 85-117 14-25 102-183/60-102 96-100 Exam: General appearance: normal weight, other (Patient is sedated on the ventilator. She has stable vital signs. Her weight is down and she is diuresing well.) - Head Head exam: Present: normal inspection, normocephalic - Eye Eye exam: Present: EOMI. Absent: scleral icterus Pupils: Present: BITA - ENT ENT exam: Present: other (ET tube is in good position) - Neck Neck exam: Absent: lymphadenopathy, thyromegaly - Respiratory Respiratory exam: Present: She has good breath sounds bilaterally lungs sound much clear with less rales and rhonchi. - Cardiovascular Cardiovascular exam: Present: regular rate and rhythm. Absent: gallop, systolic murmur - GI/Abdominal GI/Abdominal exam: Present: soft. Absent: distended, organomegaly, tenderness - Extremities Exam Extremities exam: Absent: calf tenderness, edema - Neurological Exam Neurological exam: Present: other (Patient is sedated on the ventilator.) - Psychiatric Psychiatric exam: Absent: anxious - Skin Skin exam: Present: warm, dry Results - Labs CBC & BMP: 07/20/17 04:10 07/20/17 04:10 - Diagnostic Findings Procedure: Chest x-ray: image reviewed by me, report reviewed by me (Chest x- ray is improving.) Assessment and Plan (1) Hypertension Status: Acute Assessment and plan: The patient has a history of hypertensive cardiovascular disease. Some of this could be pulmonary edema. She does seem to be diuresing well. Current Visit: Yes (2) Dementia Status: Chronic Assessment and plan: The patient apparently gets confused quite easily. She is stable on the ventilator. Current Visit: No (3) Aspiration pneumonia Status: Acute Assessment and plan: The patient apparently choked and vomited and certainly could have some aspiration pneumonia. Her chest x-ray is improving nicely and will lower her FiO2. Hopefully we can extubate in the next day or 2. Current Visit: Yes Qualifiers: Aspiration pneumonia type: unspecified Laterality: bilateral (4) Acute respiratory failure Status: Acute Assessment and plan: Patient is on the ventilator and is reasonably stable at present. Her lungs are getting better and will lower her FiO2. She should be able to come off the ventilator soon. Current Visit: Yes (5) Insulin dependent diabetes mellitus Status: Acute Assessment and plan: Her glucoses will be monitored. Her glucose has been over 300. Current Visit: Yes
[2017-07-20] MEDS: METOPROLOL TARTRATE 25 MG TABLET PO SCH ×2 (09:59→20:02)
[2017-07-20] MEDS: AMANTADINE 100 MG CAPSULE PO SCH ×2 (09:59→20:02)
[2017-07-20] MEDS: ISOSORBIDE DINITRATE 10 MG TABLET PO SCH (09:59)
[2017-07-20] MEDS: MONTELUKAST 10 MG TABLET PO SCH (09:59)
[2017-07-20] MEDS: FUROSEMIDE 40 MG/4 ML VIAL IV SCH (09:59)
[2017-07-20] MEDS: amLODIPine 10 MG TABLET PO SCH (09:59)
[2017-07-20] MEDS: ASPIRIN EC 81 MG TABLET PO SCH (09:59)
[2017-07-20] MEDS: FENOFIBRATE 145 MG TABLET PO SCH (09:59)
[2017-07-20] MEDS: FERROUS SULFATE 325 MG TABLET PO SCH (09:59)
[2017-07-20] MEDS: OLOPATADINE 0.1% OPH SOLN 5 ML BOTTLE BOTH EYES SCH ×2 (10:23→20:05)
--- NOTE | 2017-07-20 11:01 | XRay Report ---
Portable chest Exam date: 07/20/2017 4:00 AM Indication: Shortness of breath, cough Comparison: Previous day at 0330 hours Findings: Cardiomediastinal contours are stable with no change in tube or line placement. Diffuse interstitial opacities, unchanged with. No acute osseous abnormalities. Visualized upper abdomen demonstrates no acute pathology. Impression: No change in the diffuse interstitial pattern PROCEDURE INTERPRETED AT [facility] DEPARTMENT OF RADIOLOGY Final Report Signed by: Rolo Rios
--- NOTE | 2017-07-20 13:34 | Hospitalist Progress Note ---
Assessment and Plan (1) Acute respiratory failure Status: Acute Assessment and plan: The patient began mechanical ventilation due to an episode of aspiration. Examination is improving as noted by the terminal system operator. The patient will begin weaning trials. The patient did have supraventricular tachycardia in the night with heart rate up to 150. Presently the patient has sinus tachycardia at 9200 bpm. Current Visit: Yes (2) Aspiration pneumonia Status: Acute Current Visit: Yes Qualifiers: Aspiration pneumonia type: unspecified Laterality: bilateral Hospitalist: Subjective Interval history: Mrs. Bruno had respiratory failure following an episode of aspiration. Tube feedings are presently on hold. The patient is beginning to make progress on weaning trials. We will wean her from the ventilator as per pulmonary recommendations. The patient is presently sedated on Diprivan. Exam - Constitutional Vitals: Period Temp Pulse Resp BP Sys/Romero Pulse Ox Last 24 Hr 97.4 F-99.0 F 85-130 13-25 102-183/60-102 96-100 General appearance: no acute distress - Respiratory Respiratory exam: Present: other (Upper airway congestion right greater than left) - Cardiovascular Cardiovascular exam: Present: regular rate and rhythm, tachycardia - GI/Abdominal GI/Abdominal exam: Present: normal bowel sounds Results - Labs CBC & BMP: 07/20/17 04:10 07/20/17 04:10 Lab Results: I have reviewed the past 24 hour labs
[2017-07-20 23:58] LABS: Hematocrit 35.5 VOL% (35.7-47.0); Hemoglobin 11.6 GM/DL (12.0-16.0)
[2017-07-21] MEDS: LACTATED RINGERS 1,000 ML IV SCH
[2017-07-21] MEDS: ALBUTEROL/IPRATROPIUM 3 ML NEB RESP TX SCH ×4 (00:41→19:40)
[2017-07-21] MEDS: CLINDAMYCIN INJ 600 MG in PREMIX 1 EACH IV SCH ×4 (00:45→18:28)
[2017-07-21 02:31] LABS: ABG Base Excess 7.4 MMOL/L (-2.5-2.5); ABG HCO3 31.2 MMOL/L (20-26); ABG Oxygen Saturation 98.7 % (95-100); ABG PCO2 37.9 MM HG (35-48); ABG PH 7.518 (7.35-7.45); ABG TCO2 27.3 MMOL/L (23-27); Allen Test Positive; Pt O2 Delivery Device Ventilator
[2017-07-21] MEDS: PROPOFOL 1,000 MG/100 ML BOTTLE IV SCH ×5 (03:30→21:10)
[2017-07-21 05:03] LABS: Basophils # 0.1 10*3/uL (0.0-0.2); Basophils % 0.6 % (0.0-0.8); Eosinophils # 0.1 10*3/uL (0.0-0.87); Eosinophils % 0.5 % (0.00-10.9); Hematocrit 34.9 VOL% (35.7-47.0); Hemoglobin 11.3 GM/DL (12.0-16.0); Immature Granulocytes % 9.5 %; Immature Granulocytes Absolute 0.93 #; Lymphocytes # 2.2 10*3/uL (1.4-4.0); Lymphocytes % 22.1 % (21.3-54.2); Mean Corpuscular HGB Conc 32.4 GM/DL (32-36); Mean Corpuscular Hemoglobin 26 PG (27-34); Mean Corpuscular Volume 78.6 FL (87-102); Mean Platelet Volume 10.5 FL (9.6-12.0); Monocytes # 0.8 10*3/uL (0.11-0.8); Monocytes % 8.5 % (1.7-12.7); NRBC # 0.02 10*3/uL; Neutrophils # 5.7 10*3/uL (1.4-7.4); Neutrophils % 58.8 % (38.7-73.9); Platelet Count 173 T/CUMM (130-400); Red Blood Count 4.44 MC/CUMM (3.8-5.5); Red Cell Distribution Width 15.5 % (9.3-17.3); White Blood Count 9.8 T/CUMM (4-12)
[2017-07-21 05:27] LABS: Band Neutrophils 8 % (0-10); Burr Cells Few; Hypochromasia 1+; Lymphocytes 27 % (20-55); Ovalocytes Slight; Platelet Estimate Normal; Segmented Neutrophils 54 % (50-85); Total Cells Counted 100
[2017-07-21 05:35] LABS: Calcium 8.8 MG/DL (8.5-10.1); Magnesium 2.5 MG/DL (1.8-2.4); Osmolality,Calculated 306.4 MOS/KG (273-304); Potassium 3.8 MMOL/L (3.5-5.1)
[2017-07-21] MEDS: INSULIN REGULAR 100 UNIT/ML SUBCUT SCH ×4 (05:40→23:43)
[2017-07-21 06:01] LABS: Magnesium 2.5 MG/DL (1.8-2.4); Phosphorous 4.2 MG/DL (2.5-4.9); Prealbumin 16.3 MG/DL (20-40)
--- NOTE | 2017-07-21 08:09 | Pulmonology Progress Note ---
Pulmonary - PN: Subj Interval history: Patient is a 67-year-old black lady that has dementia along with multiple other problems. She is in the retirement. She apparently choked and was felt to have aspirated. She now is on the ventilator with diffuse infiltrates. She has been diuresing quite nicely. Chest x-ray is improving nicely and her lungs sound better. Her urine output has been good. Her oxygenation is better. She still has not been doing much CPAP. She is a little alkalotic and will adjust her ventilator. Overall she looks stable. Exam (Progress Note) - Constitutional Vitals: Period Temp Pulse Resp BP Sys/Romero Pulse Ox Last 24 Hr 97.5 F-97.8 F 79-130 13-20 106-166/72-108 92-100 Exam: General appearance: normal weight, other (Patient is sedated on the ventilator. She has stable vital signs. Her weight is down and she is diuresing well.) - Head Head exam: Present: normal inspection, normocephalic - Eye Eye exam: Present: EOMI. Absent: scleral icterus Pupils: Present: BITA - ENT ENT exam: Present: other (ET tube is in good position) - Neck Neck exam: Absent: lymphadenopathy, thyromegaly - Respiratory Respiratory exam: Present: She has good breath sounds bilaterally and her lungs are much clearer now. - Cardiovascular Cardiovascular exam: Present: regular rate and rhythm. Absent: gallop, systolic murmur - GI/Abdominal GI/Abdominal exam: Present: soft. Absent: distended, organomegaly, tenderness - Extremities Exam Extremities exam: Absent: calf tenderness, edema - Neurological Exam Neurological exam: Present: other (Patient is sedated on the ventilator.) - Psychiatric Psychiatric exam: Absent: anxious - Skin Skin exam: Present: warm, dry Results - Labs CBC & BMP: 07/21/17 04:56 07/21/17 04:56 Labs: PO2 is 144 with a PCO2 of 37 and pH of 7.51 - Diagnostic Findings Procedure: Chest x-ray: image reviewed by me, report reviewed by me (Chest x- ray is better with less infiltrates.) Assessment and Plan (1) Hypertension Status: Acute Assessment and plan: The patient has a history of hypertensive cardiovascular disease. Some of this could be pulmonary edema. She does seem to be diuresing well. Her blood pressure and heart rate are stable. Current Visit: Yes (2) Dementia Status: Chronic Assessment and plan: The patient apparently gets confused quite easily. She is stable on the ventilator. Current Visit: No (3) Aspiration pneumonia Status: Acute Assessment and plan: The patient apparently choked and vomited and certainly could have some aspiration pneumonia. Her chest x-ray is improving nicely and will lower her FiO2. We will continue to push CPAP trials. Current Visit: Yes Qualifiers: Aspiration pneumonia type: unspecified Laterality: bilateral (4) Acute respiratory failure Status: Acute Assessment and plan: Patient is on the ventilator and is reasonably stable at present. Her lungs are getting better and will lower her FiO2. Will change her to IMV and see if she will breathe a little better. Overall she is improving. Current Visit: Yes (5) Insulin dependent diabetes mellitus Status: Acute Assessment and plan: Her glucoses will be monitored. Her glucose has been over 249. Current Visit: Yes
--- NOTE | 2017-07-21 08:12 | XRay Report ---
History: Patient on ventilator Date: 07/21/2017 Study: Chest x-ray AP portable Comparison exam: 07/20/2017 The endotracheal and nasogastric tubes are unchanged. The cardiomediastinal silhouette is stable. There is improved aeration in the lower lungs. There is some minimal residual interstitial edema/infiltrate on the current exam, left more so than right. There is no new or worsening process. There is no pleural effusion. Osseous structures are similar. Impression: Improved aeration in the lung bases compared to the previous study PROCEDURE INTERPRETED AT [facility] DEPARTMENT OF RADIOLOGY Final Report Signed by: Dr. Valerie Julio
[2017-07-21] MEDS: methylPREDNISolone SOD SUC 40 MG/1 ML VIAL IV SCH ×3 (08:30→23:42)
[2017-07-21 09:17] LABS: ABG Base Excess 6.8 MMOL/L (-2.5-2.5); ABG HCO3 30.6 MMOL/L (20-26); ABG PH 7.477 (7.35-7.45); ABG PO2 88.5 MM HG (80-95); ABG TCO2 27.8 MMOL/L (23-27)
[2017-07-21] MEDS: AMANTADINE 100 MG CAPSULE PO SCH ×2 (09:34→20:15)
[2017-07-21] MEDS: FERROUS SULFATE 325 MG TABLET PO SCH (09:34)
[2017-07-21] MEDS: MONTELUKAST 10 MG TABLET PO SCH (09:34)
[2017-07-21] MEDS: ASPIRIN EC 81 MG TABLET PO SCH (09:35)
[2017-07-21] MEDS: FENOFIBRATE 145 MG TABLET PO SCH (09:35)
[2017-07-21] MEDS: amLODIPine 10 MG TABLET PO SCH (09:35)
[2017-07-21] MEDS: METOPROLOL TARTRATE 25 MG TABLET PO SCH ×2 (09:35→20:15)
[2017-07-21] MEDS: FUROSEMIDE 40 MG/4 ML VIAL IV SCH (09:36)
[2017-07-21] MEDS: INSULIN NPH 100 UNIT/ML SUBCUT SCH ×2 (09:36→18:22)
[2017-07-21] MEDS: OLOPATADINE 0.1% OPH SOLN 5 ML BOTTLE BOTH EYES SCH ×2 (09:38→20:15)
[2017-07-21] MEDS: ISOSORBIDE DINITRATE 10 MG TABLET PO SCH (09:52)
--- NOTE | 2017-07-21 10:10 | Hospitalist Progress Note ---
Assessment and Plan (1) Aspiration pneumonia Status: Acute Assessment and plan: Continue IV clindamycin for treatment of aspiration pneumonia. Follow-up repeat chest x-rays and continue ventilator weaning. Consider LTAC referral. Current Visit: Yes Qualifiers: Aspiration pneumonia type: unspecified Laterality: bilateral (2) Acute respiratory failure Status: Acute Assessment and plan: Secondary to aspiration pneumonia. Current Visit: Yes Qualifiers: Respiratory failure complication: hypoxia Qualified Code(s): J96.01 - Acute respiratory failure with hypoxia (3) Dementia Status: Chronic Current Visit: No (4) Insulin dependent diabetes mellitus Status: Chronic Assessment and plan: Start insulin subcutaneously with Lantus and continue sliding scale. Start Glucerna tube feeds. Current Visit: Yes (5) Hypertension Status: Chronic Current Visit: Yes Qualifiers: Hypertension type: essential hypertension Qualified Code(s): I10 - Essential (primary) hypertension Hospitalist: Subjective Interval history: Patient seen and examined. No acute events overnight. Case discussed with nursing staff. Labs reviewed. The patient remains intubated and sedated. She has had elevated blood sugars and tube feeds were stopped. I have asked that they be resumed and have restarted her home Lantus dose. Pulmonary following and notes reviewed. Exam - Constitutional Vitals: Period Temp Pulse Resp BP Sys/Romero Pulse Ox Last 24 Hr 97.5 F-97.8 F 79-119 13-24 106-160/72-108 92-100 Exam: Constitutional System: No distress. No tremulousness. Remains intubated and sedated Head: Normocephalic, atraumatic. Ears, Nose and Throat System: No pain or tenderness. No epistaxis or discharge Eyes System: Pupils equal, round, and reactive. Extraocular muscles intact. Neck: Supple, without adenopathy, No jugular venous distention. No thyromegaly, neck mass, or prior surgery apparent. Respiratory System: Chest clear to auscultation. Cardiovascular System: Heart with regular rate and rhythm. No murmur. GI System: Abdomen soft, nontender. Normo active bowel sounds present. Musculoskeletal System: limbs with no pedal edema. Full distal pulses. Normal capillary refill. Results - Labs CBC & BMP: 07/21/17 04:56 07/21/17 04:56 Lab Results: I have reviewed the past 24 hour labs
[2017-07-21] MEDS: INSULIN GLARGINE 100 UNIT/ML SUBCUT SCH (10:39)
[2017-07-21] MEDS: FAMOTIDINE 20 MG/2 ML VIAL IV SCH ×2 (11:31→22:56)
[2017-07-22] MEDS: ALBUTEROL/IPRATROPIUM 3 ML NEB RESP TX SCH ×3 (00:50→13:10)
[2017-07-22] MEDS: CLINDAMYCIN INJ 600 MG in PREMIX 1 EACH IV SCH ×3 (01:21→12:13)
[2017-07-22] MEDS: LACTATED RINGERS 1,000 ML IV SCH (01:22)
[2017-07-22] MEDS: PROPOFOL 1,000 MG/100 ML BOTTLE IV SCH ×5 (01:22→15:14)
[2017-07-22 05:17] LABS: Calcium 8.3 MG/DL (8.5-10.1); Magnesium 2.6 MG/DL (1.8-2.4); Osmolality,Calculated 308.6 MOS/KG (273-304); Potassium 4.3 MMOL/L (3.5-5.1)
[2017-07-22] MEDS: INSULIN REGULAR 100 UNIT/ML SUBCUT SCH ×2 (05:32→12:13)
--- NOTE | 2017-07-22 08:10 | XRay Report ---
History: Patient on ventilator Date: 07/22/2017 Study: Chest x-ray AP portable Comparison exam: 07/21/2017 The endotracheal and nasogastric tubes remain in satisfactory position. The cardiomediastinal silhouette is unchanged. The right lung is clear. There is continued interstitial infiltrate in the left mid to lower lung, the same or minimally increased. There is no pleural effusion. Osseous structures are similar. Impression: Continued interstitial infiltrate in the left mid to lower lung, the same or slightly increased. Improved aeration in the right lung base PROCEDURE INTERPRETED AT [facility] DEPARTMENT OF RADIOLOGY Final Report Signed by: Dr. Valerie Julio
[2017-07-22] MEDS: methylPREDNISolone SOD SUC 40 MG/1 ML VIAL IV SCH (08:30)
[2017-07-22 08:59] LABS: ABG Base Excess 5.2 MMOL/L (-2.5-2.5); ABG HCO3 29.1 MMOL/L (20-26); ABG Oxygen Saturation 98.3 % (95-100); ABG PH 7.448 (7.35-7.45); ABG TCO2 26.8 MMOL/L (23-27)
--- NOTE | 2017-07-22 09:12 | Pulmonology Progress Note ---
Pulmonary - PN: Subj Interval history: Patient is a 67-year-old black lady that has dementia along with multiple other problems. She is in the [facility]. She apparently choked and was felt to have aspirated. She now is on the ventilator with diffuse infiltrates. She has been diuresing quite nicely. Chest x-ray is improving nicely and her lungs sound better. Her urine output has been good. Her oxygenation is better. Overall she has been relatively stable but she does not want to do CPAP very well. She gets very anxious at times. She likely will need her nerve medicines restarted. We will continue weaning trials. Exam (Progress Note) - Constitutional Vitals: Period Temp Pulse Resp BP Sys/Romero Pulse Ox Last 24 Hr 97.3 F-98.7 F 71-106 10-40 113-164/48-91 96-100 Exam: General appearance: normal weight, other (Patient is sedated on the ventilator. She has stable vital signs. Her weight is down and she is diuresing well.) - Head Head exam: Present: normal inspection, normocephalic - Eye Eye exam: Present: EOMI. Absent: scleral icterus Pupils: Present: BITA - ENT ENT exam: Present: other (ET tube is in good position) - Neck Neck exam: Absent: lymphadenopathy, thyromegaly - Respiratory Respiratory exam: Present: She has good breath sounds bilaterally and her lungs are much clearer now. She has not had any rales or wheezing. - Cardiovascular Cardiovascular exam: Present: regular rate and rhythm. Absent: gallop, systolic murmur - GI/Abdominal GI/Abdominal exam: Present: soft. Absent: distended, organomegaly, tenderness - Extremities Exam Extremities exam: Absent: calf tenderness, edema - Neurological Exam Neurological exam: Present: other (Patient is sedated on the ventilator.) - Psychiatric Psychiatric exam: Absent: anxious - Skin Skin exam: Present: warm, dry Results - Labs CBC & BMP: 07/21/17 04:56 07/22/17 03:51 Labs: PO2 is 114 with a PCO2 of 43 and a pH of 7.44 - Diagnostic Findings Procedure: Chest x-ray: image reviewed by me, report reviewed by me (Chest x- ray is improving.) Assessment and Plan (1) Hypertension Status: Chronic Assessment and plan: The patient has a history of hypertensive cardiovascular disease. Some of this could be pulmonary edema. She does seem to be diuresing well. Her blood pressure and heart rate are stable. Overall her hemodynamics are stable. Current Visit: Yes Qualifiers: Hypertension type: essential hypertension Qualified Code(s): I10 - Essential (primary) hypertension (2) Dementia Status: Chronic Assessment and plan: The patient apparently gets confused quite easily. Will restart some nerve medicines. Current Visit: No (3) Aspiration pneumonia Status: Acute Assessment and plan: The patient apparently choked and vomited and certainly could have some aspiration pneumonia. Her chest x-ray is improving nicely and will lower her FiO2. Will adjust her ventilator. Current Visit: Yes Qualifiers: Aspiration pneumonia type: unspecified Laterality: bilateral (4) Acute respiratory failure Status: Acute Assessment and plan: Patient is on the ventilator and is reasonably stable at present. Her lungs are getting better and will lower her FiO2. Will change her to IMV and see if she will breathe a little better. Overall she is improving. She will be slow to wean. Current Visit: Yes Qualifiers: Respiratory failure complication: hypoxia Qualified Code(s): J96.01 - Acute respiratory failure with hypoxia (5) Insulin dependent diabetes mellitus Status: Chronic Assessment and plan: Her glucoses will be monitored. Her glucose has been over 291. Current Visit: Yes
[2017-07-22] MEDS: FUROSEMIDE 40 MG/4 ML VIAL IV SCH (09:30)
[2017-07-22] MEDS: ASPIRIN EC 81 MG TABLET PO SCH (09:32)
[2017-07-22] MEDS: INSULIN NPH 100 UNIT/ML SUBCUT SCH (09:32)
[2017-07-22] MEDS: METOPROLOL TARTRATE 25 MG TABLET PO SCH (09:33)
[2017-07-22] MEDS: amLODIPine 10 MG TABLET PO SCH (09:33)
[2017-07-22] MEDS: FERROUS SULFATE 325 MG TABLET PO SCH (09:33)
[2017-07-22] MEDS: AMANTADINE 100 MG CAPSULE PO SCH (09:33)
[2017-07-22] MEDS: MONTELUKAST 10 MG TABLET PO SCH (09:33)
[2017-07-22] MEDS: FENOFIBRATE 145 MG TABLET PO SCH (09:33)
[2017-07-22] MEDS: OLOPATADINE 0.1% OPH SOLN 5 ML BOTTLE BOTH EYES SCH (09:33)
[2017-07-22] MEDS: INSULIN GLARGINE 100 UNIT/ML SUBCUT SCH (09:35)
[2017-07-22] MEDS ORDERED: GLUCAGON 1 MG VIAL IM PRN (09:46)
[2017-07-22] MEDS ORDERED: DEXTROSE 50% 25 GM/50 ML VIAL IV PRN (09:46)
[2017-07-22] MEDS: ISOSORBIDE DINITRATE 10 MG TABLET PO SCH (10:12)
--- NOTE | 2017-07-22 11:31 | Discharge Summary ---
Hospital Course - Hospital Course Hospital Course: History of Present Illness Chief complaint: Shortness of breath History of present illness: This is a chronically ill 59-year-old female that presented to the ED at [facility] via EMS from the [facility] this morning for the evaluation of shortness of breath. The patient has a long and complex medical history significant for insulin dependent diabetes mellitus , gastroesophageal reflux disease, Burnett's esophagitis, hypertension, schizophrenia, cerebrovascular accident, hypertension, asthma, dyslipidemia, neurogenic bladder. No surgical history was reported at the time of ED presentation. Apparently, the patient had been given some grape juice by the halfway staff and stopped suddenly started to cough violently. The nursing staff noted that the patient became very cyanotic. They became alarmed and called for emergency assistance. The patient was placed on a nonrebreather mask by the EMS staff at the time of departure however, the patient's respiratory status continued to decline and bag mask ventilation was initiated. The patient was subsequently transferred to [facility] for continuation of care. The patient's respiratory status was less than favorable at the time of ED presentation. Oxygen saturations were noted at 84%. Due to the severity of the patient's respiratory status, the patient was electively intubated in the ED and placed on mechanical ventilation. During the intubation, the patient was noted to have a large amount of copious emesis noted and removed via suction. Oral-gastric tube was placed to low intermittent suction with a moderate amount of gastric-like content noted. Labs were obtained which were remarkable for hemoglobin 11.9, platelet count 4 5, creatinine 1.3, glucose 316 , AST 64, troponin 0.038, and BNP was noted at 18. Urinalysis was significant for urine urobilinogen greater than 2.0, urine RBCs 1, urine WBCs 2, urine bacteria many, hyaline casts 4, and the presence of occasional urine mucus noted. Chest x-ray was significant for moderate right greater than left infiltrates versus asymmetric edema, and mildly enlargement of the heart was noted. After brief discussion with both Dr. Castellano and Dr. De León, the patient will be admitted to the hospitalist service for continuation of care. The patient will be placed in the critical care setting for further evaluation. Due to the severity of the patient's current status, a pulmonology consultation has been requested. The patient's home medications have been reviewed and reconciled. The patient's family was present at the bedside. I spoke with the patient's family in great detail regarding the patient's current CODE STATUS. Her nephew , Pardeep Bruno who is her responsible constitution party, requests that the patient be made a DO NOT RESUSCITATE. Assessment and Plan (1) Acute respiratory failure Status: Acute Assessment and plan: The patient's chest x-ray is highly suggestive of aspiration pneumonia. This is likely the cause of the patient's acute respiratory failure. The patient remains intubated on mechanical ventilation. We will consult pulmonary to assist in ventilator management. In addition, we will continue empiric antibiotic coverage and recheck chest x-ray in a.m. Current Visit: Yes (2) Aspiration pneumonia Status: Acute Assessment and plan: Chest x-ray at the time of admission is highly suspicious for aspiration pneumonia. The family reported that the patient quite often "chokes" during meals due to" eating fast". Oral gastric tube has been placed to low intermittent suction. Pulmonary has been consulted to assist during the clinical encounter. We will await pulmonary's consultation for further direction. In the meantime, we will continue empiric antibiotic coverage, inhaled bronchodilators, and corticosteroids. Current Visit: Yes Qualifiers: Aspiration pneumonia type: unspecified Laterality: bilateral (3) Insulin dependent diabetes mellitus Status: Acute Assessment and plan: We will obtain hemoglobin A1c and start Accu-Cheks with sliding scale coverage. Current Visit: Yes Hospital Course: Ms. Bruno was admitted to the intensive care unit with acute respiratory failure secondary to aspiration pneumonia. She has been receiving IV antibiotics with clindamycin. She continues to be ventilator dependent and has had a difficult time weaning. She is being transitioned to LTAC for continued pulmonary support and ventilator management. Her blood culture is positive for staph epidermidis sensitive to clindamycin. She has undergone a bronchoscopy by Dr. Alvarado today with evidence of secretions and aspiration. She is diabetic and has been receiving Glucerna tube feeds and subcutaneous insulin administration. She also has a psychiatric history and was on multiple psychiatric medications which are currently held due to her sedative medications for ventilator support. Her medications have been reconciled. The medications given during the course of the hospitalization have been continued. The patient is a DO NOT RESUSCITATE. - Time spent with patient Time with patient DS: Greater than 30 minutes (Total discharge time for this patient, including [id number] time, clinical documentation, medication reconciliation, and discharge planning was 41 minutes.) Diagnosis - Discharge Diagnosis (1) Aspiration pneumonia Status: Acute (2) Acute respiratory failure Status: Acute (3) Dementia Status: Chronic (4) Insulin dependent diabetes mellitus Status: Chronic (5) Hypertension Status: Chronic (6) Bacteremia Status: Acute Discharge Plan - Discharge Data Disposition: Disch/Xfer to [facility] Condition at Discharge: Guarded Discharge Diet: other (Tube feeds Glucerna) Contact your physician if you experience:: fever over 101, Shortness of breath, Bleeding - Discharge Medications New Albuterol Neb [Proventil Neb] 2.5 mg RESP TX RT Q1H PRN PRN Reason: Shortness Of Breath/Wheezing Albuterol/Ipratropium Neb [Duoneb] 3 ml RESP TX RT Q6H Clindamycin Inj [Cleocin Inj] 600 mg IV Q6H Famotidine Inj [Pepcid Inj] 20 mg IV Q12H vial hydrALAZINE INJ [Apresoline Inj] 10 mg IV Q6H PRN vial PRN Reason: Hypertension Insulin NPH [HumuLIN N] 20 unit SUBCUT BIDAC unit Insulin Regular [HumuLIN R] See Protocol SUBCUT Q6HR unit methylPREDNISolone SOD SUC INJ [SoluMEDROL] 40 mg IV Q8H vial Morphine Inj 2 mg IV Q4H PRN syringe PRN Reason: Pain Severe (8-10) Ondansetron Inj [Zofran Inj] 4 mg IV Q4H PRN vial PRN Reason: Nausea Haloperidol Tab [Haldol Tab] 5 mg PO BID tablet Isosorbide Dinitrate [Isordil] 10 mg PO DAILY tablet OLANZapine TAB [ZyPREXA Tab] 15 mg PO BEDTIME tablet Continue Olopatadine 0.1% Oph Soln [Patanol 0.1% Oph Soln] 1 drop BOTH EYES BID Metoprolol Tartrate 25 mg PO BID Insulin Glargine [Lantus] 40 unit SUBCUT DAILY Ferrous Sulfate 325 mg PO DAILY Aspirin [Ecotrin] 81 mg PO DAILY Montelukast Tab [Singulair Tab] 10 mg PO DAILY Furosemide Tab [Lasix Tab] 20 mg PO DAILY Fenofibrate [Tricor] 145 mg PO DAILY amLODIPine [Norvasc] 10 mg PO DAILY Amantadine HCl [Amantadine] 100 mg PO BID Discontinued Omeprazole [Prilosec] 20 mg PO DAILY Isosorbide Dinitrate 10 mg PO DAILY Docusate Sodium Cap [Colace Cap] 100 mg PO DAILY Insulin NPH Hum/Reg Insulin Hm [NovoLIN 70/30] 24 unit SUBCUT QAM traMADol TAB [Ultram] 50 mg PO BID Multivitamin [Multivitamins] 1 each PO DAILY Escitalopram [Lexapro] 20 mg PO DAILY Haloperidol [Haloperidol] 10 mg PO BEDTIME OLANZapine [Olanzapine] 20 mg PO BEDTIME Haloperidol [Haloperidol] 5 mg PO DAILY - Follow Up or Referral - Forms/Instructions Exam - Constitutional Vitals: Period Temp Pulse Resp BP Sys/Romero Pulse Ox Last 24 Hr 97.3 F-98.7 F 76-106 10-23 113-164/59-91 96-100 Discharge Results Procedures and tests throughout hospitalization: Pending Orders 07/20/17 21:32 Occult Blood, Stool Stat 07/21/17 09:59 c diff [C. Diff Toxins A & B] Routine 07/23/17 04:00 ABG [Arterial Blood Gas] IN AM BMP w/ Mg [Basic Metabolic Panel w/Mg] IN AM 07/24/17 04:00 Basic Metabolic Panel MOTH Magnesium MOTH Phosphorous MOTH Prealbumin MOTH Labs on day of discharge: Labs from last 24 hours 07/22/17 07/22/17 07/22/17 08:50 08:49 05:22 ABG pH 7.448 ABG pCO2 43.0 ABG pO2 114.0 H ABG HCO3 29.1 H ABG Total CO2 26.8 ABG O2 Saturation 98.3 ABG Base Excess 5.2 H Sodium Potassium Chloride Carbon Dioxide Anion Gap BUN Creatinine GFR Calculation BUN/Creatinine Ratio Glucose POC Glucose 291 H 312 H Calculated Osmolality Calcium Magnesium 07/22/17 07/21/17 07/21/17 03:51 23:23 18:17 ABG pH ABG pCO2 ABG pO2 ABG HCO3 ABG Total CO2 ABG O2 Saturation ABG Base Excess Sodium 146 H Potassium 4.3 Chloride 109 H Carbon Dioxide 31 Anion Gap 10.3 BUN 37 H Creatinine 1.10 H GFR Calculation 58 BUN/Creatinine Ratio 33.00 H Glucose 278 H POC Glucose 228 H 104 Calculated Osmolality 308.6 H Calcium 8.3 L Magnesium 2.6 H 07/21/17 07/21/17 16:21 12:39 ABG pH ABG pCO2 ABG pO2 ABG HCO3 ABG Total CO2 ABG O2 Saturation ABG Base Excess Sodium Potassium Chloride Carbon Dioxide Anion Gap BUN Creatinine GFR Calculation BUN/Creatinine Ratio Glucose POC Glucose 140 H 251 H Calculated Osmolality Calcium Magnesium DS: Provider Date of admission: 07/15/17 11:48 Primary care physician: . No PCP Attending physician on admission: Cathy De León MD Consults: 07/15/17 11:52 Consult to Physician [CONS] Routine Comment: Consulting Provider: Marin Alvarado When should Consulting Provider be notified: Now 07/21/17 10:04 Consult to Case Mgmt/Social Srvs [CONS] Routine Reason for Case Mgmt/Social Srvs: LTAC Discharging clinician: Iliana Smith MD Expected date of discharge: 07/22/17
[2017-07-22] MEDS: FAMOTIDINE 20 MG/2 ML VIAL IV SCH (12:00)
[2017-07-22 16:31] VITALS: BP 144/57
[2017-07-22] MEDS ORDERED: OLANZapine 5 MG TABLET PO SCH (21:00)
[2017-07-22] MEDS ORDERED: HALOPERIDOL 5 MG TABLET PO SCH (21:00)
--- NOTE | 2017-07-23 16:32 | Physician Query Form ---
CLICK EDIT DOCUMENT TO SELECT QUERY ANSWER --> OK --> SIGN Grecia Ibrahim RN Clinical Supervising Chef W) [phone] (f) [phone] [email or web address]: Make your selection(s) from the choices in EACH section by typing an "x" and enter comments in the comment section. Please use your independent medical judgment in providing your response. This request does not imply that any particular answer is desired or expected. CLINICAL INDICATORS: (Providers should not edit this section) Based on documentation in the bronchoscopy report of " The main bronchi are open but are mildly inflamed. The right upper lobe, right middle lobe, right lower lobe are all open. The left upper lobe, lingula, and left lower lobe are open. There are some blood-tinged frothy secretions that were washed and cleared. Washings were sent for culture". Please clarify where the washings were obtained from. Based on the above, could you clarify the location and type biopsy, if done? If lavage completed, was it: ( x) Bronchoalveolar Lavage BRONCHIAL: (x ) Bilateral Bronchi, all lobes ( ) Left Main Bronchus ( ) Left Upper Lobe Bronchus ( ) Left Lower Lobe Bronchus ( ) Right Main Bronchus ( ) Right Upper Lobe Bronchus ( ) Right Middle Lobe Bronchus ( ) Right Lower Lobe Bronchus ( ) Bronchial Lingula LUNG: ( ) Bilateral Lungs, all lobes ( ) Left Lung, all lobes ( ) Left Upper Lobe Lung ( ) Left Lower Lobe Lung ( ) Right Lung, all lobes ( ) Right Upper Lobe Lung ( ) Right Middle Lobe Lung ( ) Right Lower Lobe Lung ( ) Lung Lingula ( ) Other, please specify: ( ) Clinically unable to determine COMMENTS: PLEASE ALSO DOCUMENT RESPONSE IN PROGRESS NOTES AND/OR DISCHARGE SUMMARY Use of terms such as suspected, likely, or probable (associated with a specific diagnosis that is being evaluated, monitored, or treated as if it exists) are acceptable and can be restated in the discharge summary if not ruled out. MTDD
== END 2017-07-22 15:55 | DRG 163 ==
LOC: N.ED 11:08 → SUATTDRO 11:48 → N.EDINP 11:48 → N.CC 13:00
PROVIDERS: ADMIT Internal Medicine; ATTEND Family Medicine